=== PATIENT | male | born 1940 | race Caucasian/White ===

== ENCOUNTER 2020-04-24 08:35 | Outpatient (REF) | payer MEDICARE, SELFPAY ==
[2020-04-24 09:06] LABS: Hemoglobin 13.2 g/dl (14.0-18.0); Mean Corpuscular HGB Conc 31.4 g/dl (31.0-36.0); Mean Corpuscular Hemoglobin 26.6 pg (27.0-33.0); Mean Corpuscular Volume 84.5 fL (80-98); Platelet Count 233 X10*3/uL (160-400); Red Blood Count 4.97 X10*6/uL (4.60-5.80); Red Cell Distribution Width 14.2 % (11.0-16.0); White Blood Count 8.6 X10*3/uL (4.8-10.8)
[2020-04-24 09:34] LABS: Alanine Aminotransferase 31 U/L (0-40); Albumin Level 4.5 g/dL (3.5-5.0); Alkaline Phosphatase 111 U/L (39-117); Anion Gap 13 (12-20); Aspartate Amino Transferase 21 U/L (5-37); Bilirubin Direct 0.2 mg/dL (0.0-0.5); Bilirubin Total 0.4 mg/dL (0.0-1.0); Blood Urea Nitrogen 13 mg/dL (9-16); Calcium 9.2 mg/dL (8.4-10.2); Carbon Dioxide 28 mmol/L (22-29); Chloride 106 mmol/L (96-108); Cholesterol 153 mg/dL; Estimated Glomerular Filt Rate > 60; Glucose Random 150 mg/dL (60-115); HDL Cholesterol 35 mg/dL; LDL Cholesterol Calculated 77 mg/dl; Potassium 3.9 mmol/l (3.3-5.1); Sodium 143 mmol/L (135-145); Total Protein 7.3 g/dL (6.5-8.0); Triglycerides 208 mg/dL
[2020-04-24 09:41] LABS: Estimated Average Glucose 154 mg/dL
[2020-04-24 09:55] LABS: Thyroid Stimulating Hormone 4.72 uIU/mL (0.32-4.0)
== END 2020-04-24 08:36 | disposition home or self-care (01) ==
LOC: HO.LAB 08:35
PROVIDERS: Visit Provider Internal Medicine
DX: E11.9 Type 2 diabetes mellitus without complications (principal)
CPT/HCPCS: 36415; 80048; 80061; 80076; 83036; 84443; 85027

== ENCOUNTER 2020-05-07 15:11 | Emergency (ER) | payer MEDICARE, SELFPAY ==
[2020-05-07 15:18] VITALS: BP 126/70; PULSE 61; RESP 18; TEMP 36.6; O2SAT 95; BMI 24.2
--- NOTE | 2020-05-07 15:36 | XR_ITS ---
EXAMINATION: XR KNEE, LEFT CLINICAL INFORMATION: Left knee, left hand and wrist COMPARISON: Left knee and hand pain after fall TECHNIQUE: Four views of the left knee, 4 views left hand. FINDINGS: Knee: Normal no significant bone joint or soft tissue abnormality is seen. No effusion is present. No fracture is seen. Left hand and wrist: There is a spiral fracture the base of the fourth metacarpal which most likely involves the PENITENTIARY joint. No other fractures are seen. XR/XR knee LT 4V IMPRESSION: Spiral fracture base of the fourth metacarpal carpal.
--- NOTE | 2020-05-07 15:36 | CT_ITS ---
EXAMINATION: NONCONTRAST HEAD CT NONCONTRAST CERVICAL SPINE CT INDICATION INFORMATION: Fall COMPARISON: 09/20/2018 TECHNIQUE: Separate noncontrast CT examinations of the head and cervical spine were performed. Coronal and sagittal images were created for each examination at the technologist workstation. DLP: 1247 mGy-cm FINDINGS: Head: There is no evidence of acute intracranial hemorrhage or territorial infarction. No abnormal mass effect or midline shift is seen. Gomez to white matter differentiation is well preserved. No extra-axial fluid collections are identified. No hydrocephalus. Proportional prominence of the ventricles and sulcal spaces is consistent with moderate volume loss. Patchy periventricular and deep white matter hypoattenuation is consistent with moderate small vessel ischemic changes. Bilateral chronic frontal lobe infarcts. Ex vacuo dilatation of the frontal horns of the lateral ventricles. Chronic lacunar infarct of the left caudate head. No acute osseous or soft tissue abnormality. The mastoid air cells and visualized portions of the paranasal sinuses are well aerated. Cervical spine: There is anatomic alignment of the vertebral bodies and posterior elements. The atlantoaxial and atlantooccipital articulations are intact. Vertebral body heights are maintained. There is multilevel intervertebral disc space narrowing with endplate osteophyte formation and facet arthropathy. No evidence of acute fracture. No prevertebral soft tissue swelling. Visualized portions of the lung apices are unremarkable. The thyroid gland is unremarkable. CT/CT cervical spine wo con IMPRESSION: 1. No acute intracranial findings. Multiple chronic changes. 2. No fracture or malalignment of the cervical spine. Moderate degenerative changes.
--- NOTE | 2020-05-07 15:36 | ECG_ITS ---
Test Reason : FALL Blood Pressure : / mmHG Vent. Rate : 057 BPM Atrial Rate : 057 BPM P-R Int : 206 ms QRS Dur : 084 ms QT Int : 444 ms P-R-T Axes : 061 037 060 degrees QTc Int : 432 ms Sinus bradycardia Otherwise normal ECG No previous ECGs available Referred By: Kenneth Jensen Electronically Signed By:JEREMY REYES MD
[2020-05-07 16:23] LABS: MANUAL DIFF FLAG NO
[2020-05-07 16:25] LABS: Basophils Percent Auto 0.3 % (0-2); Eosinophils Absolute Auto 0.2 X10*3/uL (0.0-0.4); Eosinophils Percent Auto 1.9 % (0-4); Hemoglobin 11.9 g/dl (14.0-18.0); Imm Gran Abs Auto 0.02 X10*3/uL (0.00-0.03); Imm Gran Pct Auto 0.3 % (0.0-0.4); Lymphocytes Percent Auto 25.6 % (20-40); Mean Corpuscular HGB Conc 31.3 g/dl (31.0-36.0); Mean Corpuscular Hemoglobin 26.7 pg (27.0-33.0); Mean Corpuscular Volume 85.2 fL (80-98); Mean Platelet Volume 11.3 fL (9.4-12.4); Monocytes Absolute Auto 0.4 X10*3/uL (0.1-1.2); Monocytes Percent Auto 5.6 % (2-11); Neutrophils Absolute Auto 5.1 X10*3/uL (2.0-8.3); Neutrophils Percent Auto 66.3 % (45-73); Platelet Count 198 X10*3/uL (160-400); Red Blood Count 4.46 X10*6/uL (4.60-5.80); White Blood Count 7.7 X10*3/uL (4.8-10.8)
--- NOTE | 2020-05-07 16:28 | XR_ITS ---
EXAMINATION: XR KNEE, LEFT CLINICAL INFORMATION: Left knee, left hand and wrist COMPARISON: Left knee and hand pain after fall TECHNIQUE: Four views of the left knee, 4 views left hand. FINDINGS: Knee: Normal no significant bone joint or soft tissue abnormality is seen. No effusion is present. No fracture is seen. Left hand and wrist: There is a spiral fracture the base of the fourth metacarpal which most likely involves the SKILLED NURSING joint. No other fractures are seen. XR/XR hand wrist LT IMPRESSION: Spiral fracture base of the fourth metacarpal carpal.
--- NOTE | 2020-05-07 16:28 | ED_ITS ---
HPI - Fall General Chief Complaint: Fall Stated Complaint: fall Time Seen by Provider: 05/07/20 19:38 Source: patient Mode of arrival: EMS Limitations: no limitations History of Present Illness HPI Narrative: Patient presents to ED for fall. Patient states since having a stroke 6 years ago in [place] history and Parkinson's he has frequent falls. Patient states today while walking in the street he lost his footing and became off balance which caused him start walking faster than usual and then he fell. Patient states this usually happens every time he is about to fall. Patient denied having any headache, chest pain, shortness of breath, weakness or abdominal pain before falling. Patient main complaint is left knee and left hand pain. Patient denies hitting head or loss of consciousness. Patient states he does not use a walker or cane. Patient states at baseline he usually ambulates by putting his hand on the wall to better his balance. Patient states he refrequently falls. Patient denies any rectal bleeding, or vomiting blood. Related Data Previous Rx's Medication Instructions Recorded memantine 10 mg tablet 10 mg PO BID #180 tab 04/16/20 memantine 10 mg tablet 10 mg PO BID #180 tab 04/17/20 pioglitazone 15 mg tablet 15 mg PO DAILY #90 tab 04/17/20 donepezil 10 mg tablet 10 mg PO DAILY #90 tab 04/19/20 paroxetine HCl 20 mg tablet 20 mg PO DAILY #90 tab 04/29/20 ibuprofen 400 mg PO Q6H PRN #28 tab 05/07/20 Allergies Allergy/AdvReac Type Severity Reaction Status Date / Time No Known Allergies Allergy Verified 05/05/20 11:05 Review of Systems Review of Systems: Yes all other systems are reviewed and are negative Constitutional: Constitutional: Reports as per HPI, Reports no additional constitutional complaints, Denies frequent falls and Denies headache(s) Eyes: Eyes: Reports as per HPI and Reports no additional eye complaints ENT: Reports system reviewed and no additional complaints, except as documented, Reports as per HPI, Denies vertigo, Denies dizziness and Denies headache(s) Cardiovascular: Cardiovascular: Reports as per HPI, Reports no additional cardiovascular complaints and Denies syncope Respiratory: Respiratory: Reports as per HPI and Reports no additional respiratory complaints Gastrointestinal: Gastrointestinal: Reports as per HPI and Reports no additional gastrointestinal complaints Genitourinary: Genitourinary: Reports no additional male genitourinary complaints and Reports as per HPI Musculoskeletal: Musculoskeletal: Reports no additional musculoskeletal complaints and Reports arthralgias ( left knee and left hand pain) Neurologic: Reports system reviewed and no additional complaints, except as documented, Reports as per HPI, Denies Abnormal speech present, Denies burning sensations, Denies confusion, Denies vertigo, Denies dizziness, Denies syncope, Denies frequent falls and Denies headache(s) Psychiatric: Psychiatric: Reports no additional psychiatric complaints, Reports as per HPI and Denies confusion [facility] Past Medical History Medical History Diabetes Parkinsons Stroke Surgical History (Updated 05/05/20 @ 11:05 by JAMIE Crabtree) No pertinent past surgical history Family History Family History (Updated 05/05/20 @ 11:06 by JAMIE Crabtree) Father No problems noted. Mother No problems noted. Family/Other Diabetes Social History Social History Alcohol intake: never Smoked in Last 30 Days: No Use of substances other than those prescribed or required for medical reasons: No Advance Directives: No Advance Directives Information Provided: No Physical Exam Vital Signs: Vital Signs: Last Vital Signs Temp 97.8 F 05/07/20 18:39 Pulse 62 05/07/20 18:39 Resp 16 05/07/20 18:39 BP 135/60 05/07/20 18:39 Pulse Ox 98 05/07/20 18:39 Body Mass Index 24.2 Const: General: cooperative, healthy appearing, comfortable, no acute distress, well developed and alert; No confusion Orientation/consciousness: oriented to person, patient oriented x3 and No confusion HENMT: Head: Yes normal to inspection, Yes No palpable skull fracture present, No atraumatic, No abrasion, No Acrocyanosis present, No Franz's sign, No contusion, No cranial bruits, No hematoma, No laceration, No occipital foramen tenderness, No palpable skull fracture, No raccoon eyes, No scalp tenderness, No Temporal artery tenderness present and No periorbital ecchymosis Eyes: General: appearance normal, both eyes and all related structures Neck: Neck: Yes normal visual inspection, Yes full ROM, Yes no lymphadenopathy, Yes no meningeal signs, Yes trachea midline, Yes supple and No tender Chest: Chest palpation & inspection: normal inspection of the chest, normal palpation of entire chest wall and no localized rib tenderness Resp: Effort & Inspection: normal respiratory effort and able to speak in complete sentences Auscultation: clear to auscultation bilaterally Cardio: Jugular venous distension: no JVD Heart sounds: S1 normal heart sound present and S2 normal heart sound present GI: Inspection: Yes normal to inspection and No abdominal wall ecchymosis Palpation (GI): Soft to palpation, not firm, nontender, no guarding and not rigid : General: No CVA tenderness and Yes no CVA tenderness Back/Spine/Pelvis: Back: no CVA tenderness, No CVA tenderness and No back tenderness Skin: Other: patient of left General skin exam: no rashes or lesions noted Neuro: Other: negative pronator drift. squaxin facial droop. Motor/neuro / vascular exam of all extremities are intact. All extremities have equal strength. Speech is normal General: oriented to person, patient oriented x3, gait normal, tone normal, no meningeal signs, CN's II-XI intact bilaterally and No confusion Cranial nerves: Yes CN's II-XII intact bilaterally Speech: No Abnormal speech present Extrem: Other: positive for left hand tenderness and left knee tenderness. Course Course Course Narrative: history and physical exam indicate more mechanical fall, but due to patient's age will do medical evaluation. Reevaluation(s) Reevaluation #1: patient's EKG was normal. Patient's troponin negative. Press the patient labs are normal. Patient head CT, C-spine, and left knee x-ray were all negative for brain bleed, skull fracture, neck fracture, or knee fracture. Left hand x-ray came back positive for 4th metacarpal fracture. Patient placed in ulnar gutter splint by tech. Time: 18:50 Reevaluation #2: patient able to walk on his own without any help from staff. Patient presently is asymptomatic. History and physical exam indicate mechanical fall.. Patient has small drop in hematocrit. Patient vital signs are stable. Occult guaiac stool negative. Patient is hemodynamically stable. Time: 19:04 MDM - Fall MDM Narrative Medical decision making narrative: Mechanical fal. hand fracture Lab Data Result diagrams: 05/07/20 16:16 05/07/20 16:16 Labs: Lab Results 05/07/20 05/07/20 05/07/20 Range/Units 16:16 16:16 16:16 WBC 7.7 (4.8-10.8) X10*3/uL RBC 4.46 L (4.60-5.80) X10*6/uL Hgb 11.9 L (14.0-18.0) g/dl Hct 38.0 L (42-52) % MCV 85.2 (80-98) fL MCH 26.7 L (27.0-33.0) pg MCHC 31.3 (31.0-36.0) g/dl RDW 14.0 (11.0-16.0) % Plt Count 198 (160-400) X10*3/uL MPV 11.3 (9.4-12.4) fL Immature Gran % (Auto) 0.3 (0.0-0.4) % Neut % (Auto) 66.3 (45-73) % Lymph % (Auto) 25.6 (20-40) % [place] % (Auto) 5.6 (2-11) % Eos % (Auto) 1.9 (0-4) % Baso % (Auto) 0.3 (0-2) % Lymph # (Auto) 2.0 (1.2-4.9) X10*3/uL [place] # (Auto) 0.4 (0.1-1.2) X10*3/uL Eos # (Auto) 0.2 (0.0-0.4) X10*3/uL Baso # (Auto) 0.0 (0.0-0.2) X10*3/uL Abs Immat Gran (auto) 0.02 (0.00-0.03) X10*3/uL Absolute Neuts (auto) 5.1 (2.0-8.3) X10*3/uL Absolute Nucleated RBC 0.000 (0.0-0.012) X10*3/uL Nucleated RBC % (auto) 0.0 (0.0-0.2) /100WBC PT 11.7 (10.8-13.0) SEC INR 1.0 (0.9-1.1) APTT 32.5 (24.1-38.0) SEC Sodium 140 (135-145) mmol/L Potassium 4.3 (3.3-5.1) mmol/l Chloride 104 (96-108) mmol/L Carbon Dioxide 28 (22-29) mmol/L Anion Gap 12 (12-20) BUN 13 (9-16) mg/dL Creatinine 1.01 (0.5-1.4) mg/dL Estim Creat Clear Calc 53.5 Estimated GFR > 60 Random Glucose 116 H (60-115) mg/dL Calcium 9.0 (8.4-10.2) mg/dL Total Bilirubin 0.5 (0.0-1.0) mg/dL AST 17 (5-37) U/L ALT 23 (0-40) U/L Alkaline Phosphatase 102 (39-117) U/L Troponin I High Sens (<3.5-35.0) ng/L Total Protein 6.6 (6.5-8.0) g/dL Albumin 4.2 (3.5-5.0) g/dL 05/07/20 Range/Units 16:16 WBC (4.8-10.8) X10*3/uL RBC (4.60-5.80) X10*6/uL Hgb (14.0-18.0) g/dl Hct (42-52) % MCV (80-98) fL MCH (27.0-33.0) pg MCHC (31.0-36.0) g/dl RDW (11.0-16.0) % Plt Count (160-400) X10*3/uL MPV (9.4-12.4) fL Immature Gran % (Auto) (0.0-0.4) % Neut % (Auto) (45-73) % Lymph % (Auto) (20-40) % [place] % (Auto) (2-11) % Eos % (Auto) (0-4) % Baso % (Auto) (0-2) % Lymph # (Auto) (1.2-4.9) X10*3/uL [place] # (Auto) (0.1-1.2) X10*3/uL Eos # (Auto) (0.0-0.4) X10*3/uL Baso # (Auto) (0.0-0.2) X10*3/uL Abs Immat Gran (auto) (0.00-0.03) X10*3/uL Absolute Neuts (auto) (2.0-8.3) X10*3/uL Absolute Nucleated RBC (0.0-0.012) X10*3/uL Nucleated RBC % (auto) (0.0-0.2) /100WBC PT (10.8-13.0) SEC INR (0.9-1.1) APTT (24.1-38.0) SEC Sodium (135-145) mmol/L Potassium (3.3-5.1) mmol/l Chloride (96-108) mmol/L Carbon Dioxide (22-29) mmol/L Anion Gap (12-20) BUN (9-16) mg/dL Creatinine (0.5-1.4) mg/dL Estim Creat Clear Calc Estimated GFR Random Glucose (60-115) mg/dL Calcium (8.4-10.2) mg/dL Total Bilirubin (0.0-1.0) mg/dL AST (5-37) U/L ALT (0-40) U/L Alkaline Phosphatase (39-117) U/L Troponin I High Sens < 3.5 (<3.5-35.0) ng/L Total Protein (6.5-8.0) g/dL Albumin (3.5-5.0) g/dL ECG Data Interpretation: sinus bradycardia. Ventricular rate 57. ID interval tools 6. QRS as 84. QTC 432. Negative STEMI Discharge Plan Discharge Clinical Impression: Fracture of hand Patient Disposition: Home, Self-Care Instructions: Hand Fracture (ED) Prescriptions: New ibuprofen 400 mg tablet 400 mg PO Q6H PRN (Reason: pain) Qty: 28 RF: 0 No Action memantine 10 mg tablet 10 mg PO BID Qty: 180 RF: 0 pioglitazone 15 mg tablet 15 mg PO DAILY Qty: 90 RF: 0 memantine 10 mg tablet 10 mg PO BID Qty: 180 RF: 0 donepezil 10 mg tablet 10 mg PO DAILY Qty: 90 RF: 2 paroxetine HCl 20 mg tablet 20 mg PO DAILY Qty: 90 RF: 1 Referrals: Navid Allen MD [Physician] - 2 days (Left hand 4th metacarpal fracture) Print Language: Lithuanian
[2020-05-07 16:30] LABS: Prothrombin Time 11.7 SEC (10.8-13.0)
[2020-05-07 16:33] LABS: Partial Thromboplastin Time 32.5 SEC (24.1-38.0)
[2020-05-07] MEDS: Acetaminophen 325 MG TABLET 650 MG PO (16:50)
[2020-05-07 16:51] LABS: Alanine Aminotransferase 23 U/L (0-40); Albumin Level 4.2 g/dL (3.5-5.0); Alkaline Phosphatase 102 U/L (39-117); Anion Gap 12 (12-20); Aspartate Amino Transferase 17 U/L (5-37); Bilirubin Total 0.5 mg/dL (0.0-1.0); Blood Urea Nitrogen 13 mg/dL (9-16); Carbon Dioxide 28 mmol/L (22-29); Chloride 104 mmol/L (96-108); Creatinine Clr Calc Pharmacy 53.5; Estimated Glomerular Filt Rate > 60; Glucose Random 116 mg/dL (60-115); Potassium 4.3 mmol/l (3.3-5.1); Sodium 140 mmol/L (135-145); Total Protein 6.6 g/dL (6.5-8.0)
[2020-05-07 16:56] LABS: Troponin-I High Sensitivity < 3.5 ng/L (<3.5-35.0)
[2020-05-07 18:39] VITALS: BP 135/60; PULSE 62; RESP 16; TEMP 36.6; O2SAT 98
[2020-05-07 19:58] LABS: OBS Int Ctl Valid YES; OBS1 NEG (NEG)
--- NOTE | 2020-05-07 20:13 | PC.NURSE ---
pt ambulates well, no apparent distress noted, +cms in r hand s/p cast application
== END 2020-05-07 20:14 | disposition home or self-care (01) ==
PROVIDERS: Physician Assistant; Emergency Provider Internal Medicine
DX: S62.345A Nondisplaced fracture of base of fourth metacarpal bone, left hand, initial encounter for closed fracture (principal); M25.562 Pain in left knee; W01.0XXA Fall on same level from slipping, tripping and stumbling without subsequent striking against object, initial encounter; Z91.81 History of falling; E11.9 Type 2 diabetes mellitus without complications; G20 Parkinson's disease; F02.80 Dementia in other diseases classified elsewhere, unspecified severity, without behavioral disturbance, psychotic disturbance, mood disturbance, and anxiety; Y93.01 Activity, walking, marching and hiking; Y92.480 Sidewalk as the place of occurrence of the external cause; Y99.9 Unspecified external cause status
CPT/HCPCS: 29125; 36415; 70450; 72125; 73110; 73130; 73564; 80053; 82272; 84484; 85025; 85610; 85730; 93005; 99284

== ENCOUNTER 2020-05-14 12:22 | Outpatient (REF) | payer MEDICARE, SELFPAY ==
--- NOTE | 2020-05-14 13:36 | XR_ITS ---
EXAMINATION: XR HAND, LEFT CLINICAL INFORMATION: Fracture follow-up COMPARISON: 05/07/2020 TECHNIQUE: PA, lateral, and oblique views of the left hand. FINDINGS: The distal radius, ulna and radioulnar joint are normal. The carpal bones are normal. No carpal fracture or subluxation. Again noted is an oblique fracture of the proximal fourth metacarpal metadiaphysis with approximately 0.3 cm ulnar displacement of the distal fragment. Currently, no callus formation. Otherwise, metacarpals and carpometacarpal joints are unremarkable. The phalanges are intact. XR/XR hand LT min 3V IMPRESSION: Mildly displaced fracture of the proximal fourth metacarpal. The fragments are unchanged in position compared to 05/07/2020.
== END 2020-05-14 12:23 | disposition home or self-care (01) ==
LOC: HO.HOSX 12:22
PROVIDERS: Visit Provider Physician Assistant
DX: S62.305A Unspecified fracture of fourth metacarpal bone, left hand, initial encounter for closed fracture (principal)
CPT/HCPCS: 26600; 29085; 73130; 99202

== ENCOUNTER 2020-07-01 09:51 | Outpatient (REF) | payer MEDICARE, SELFPAY ==
--- NOTE | 2020-07-01 10:39 | XR_ITS ---
EXAMINATION: XR HAND, LEFT CLINICAL INFORMATION: Follow-up fracture COMPARISON: 05/14/2020 TECHNIQUE: PA, lateral, and oblique views of the left hand. FINDINGS: Bones are diffusely osteopenic. Carpal bones are intact. Joint spaces are well-preserved in the hand and wrist. Oblique fracture of the proximal metadiaphysis of the fourth metacarpal with 2-3 mm of ulnar displacement and mild proximal migration of the distal fragment. The position of the distal fragment is unchanged compared to 05/14/2020. There is early callus formation at fracture margins. XR/XR hand LT min 3V IMPRESSION: There is an early healing response at the periphery of the oblique fourth metacarpal fracture.
== END 2020-07-01 09:52 | disposition home or self-care (01) ==
LOC: HO.HOSX 09:51
PROVIDERS: Visit Provider Physician Assistant
DX: S62.92XA Unspecified fracture of left hand, initial encounter for closed fracture (principal); X58.XXXA Exposure to other specified factors, initial encounter; Y93.9 Activity, unspecified; Y92.9 Unspecified place or not applicable; Y99.9 Unspecified external cause status
CPT/HCPCS: 73130

== ENCOUNTER 2021-01-13 08:59 | Outpatient (REF) | payer MEDICARE, SELFPAY ==
[2021-01-13 09:55] LABS: Hematocrit 40.1 % (42-52); Hemoglobin 12.4 g/dl (14.0-18.0); Mean Corpuscular HGB Conc 30.9 g/dl (31.0-36.0); Mean Corpuscular Hemoglobin 26.5 pg (27.0-33.0); Mean Corpuscular Volume 85.7 fL (80-98); Mean Platelet Volume 11.3 fL (9.4-12.4); Platelet Count 241 X10*3/uL (160-400); Red Blood Count 4.68 X10*6/uL (4.60-5.80); Red Cell Distribution Width 14.1 % (11.0-16.0); White Blood Count 7.2 X10*3/uL (4.8-10.8)
[2021-01-13 10:11] LABS: Alanine Aminotransferase 24 U/L (0-40); Albumin Level 4.5 g/dL (3.5-5.0); Alkaline Phosphatase 114 U/L (39-117); Anion Gap 11 (12-20); Aspartate Amino Transferase 18 U/L (5-37); Bilirubin Direct 0.2 mg/dL (0.0-0.5); Bilirubin Total 0.4 mg/dL (0.0-1.0); Blood Urea Nitrogen 10 mg/dL (9-16); Calcium 9.7 mg/dL (8.4-10.2); Carbon Dioxide 30 mmol/L (22-29); Chloride 105 mmol/L (96-108); Cholesterol 138 mg/dL; Estimated Glomerular Filt Rate > 60; Glucose Random 124 mg/dL (60-115); HDL Cholesterol 37 mg/dL; LDL Cholesterol Calculated 73 mg/dl; Potassium 4.3 mmol/L (3.3-5.1); Sodium 142 mmol/L (135-145); Total Protein 7.1 g/dL (6.5-8.0); Triglycerides 142 mg/dL
[2021-01-13 10:16] LABS: Estimated Average Glucose 146 mg/dL; Hemoglobin A1c % 6.7 %
[2021-01-13 11:11] LABS: Thyroid Stimulating Hormone 5.02 uIU/mL (0.32-4.0)
[2021-01-23 13:32] LABS: Vitamin D 25-OH, D2 <4 ng/mL; Vitamin D 25-OH, D3 27 ng/mL; Vitamin D 25-OH, Total 27 ng/mL (30-100)
== END 2021-01-13 09:00 | disposition home or self-care (01) ==
LOC: HO.LAB 08:59
PROVIDERS: PCP Internal Medicine; Visit Provider Internal Medicine
DX: E11.9 Type 2 diabetes mellitus without complications (principal); I63.9 Cerebral infarction, unspecified
CPT/HCPCS: 36415; 80048; 80061; 80076; 82306; 83036; 84443; 85027

== ENCOUNTER 2021-06-07 07:47 | Emergency (ER) | payer MEDICARE, SELFPAY ==
--- NOTE | ~2021-06-07 | CT_ITS ---
EXAMINATION: CT BRAIN AND CT CERVICAL SPINE WITHOUT CONTRAST. CLINICAL INFORMATION: Fall, trauma. COMPARISON: None. TECHNIQUE: 5 mm thin axial and reformatted 2 mm thin sagittal and coronal images of the brain were obtained without contrast. Subsequently, axial 3 mm thin and reformatted 2 mm thin sagittal and coronal images of the cervical spine were obtained. DLP: 1299 mGy-cm. FINDINGS: Brain: There is no acute intra-axial or extra-axial bleed, masses or midline shift. There is no acute infarction evolution. There is lacunar infarction bilateral external capsules, right greater than left and left basal ganglia. Moderate symmetrical but enlarged lateral ventricles are noted. There is prominent bilateral cortical sulci. There is diffuse hypodensity in bilateral periventricular white matter, especially in the frontal lobes. Bone windows reveal no calvarial abnormality. Bilateral paranasal sinuses and mastoid air cells are well aerated. Cervical spine: On sagittal reconstructed images, there is mild straightening of the cervical lordosis. The vertebral heights and alignment are normal. There is loss of C3-C4, C5-C6 and C6-C7 disc heights with moderate ventral and mild posterior spondylosis. The craniovertebral junction and the C1-C2 alignment is normal. There is no visible acute fracture, dislocation or subluxation seen. The prevertebral and paravertebral soft tissues are normal. CT/CT cervical spine wo con IMPRESSION: No acute intracranial process seen. Bilateral lacunar infarcts in the external capsule and left basal ganglia. Chronic small vessel ischemic changes in periventricular white matter of both cerebral hemispheres especially in frontal lobes. No mass effect. Moderate cerebral volume loss. No acute fracture, dislocation or subluxation.
--- NOTE | ~2021-06-07 | XR_ITS ---
EXAMINATION: XR CHEST CLINICAL INFORMATION: Chest pain COMPARISON: None TECHNIQUE: Frontal view of the chest was obtained. FINDINGS: No significant abnormality is noted involving the heart, lungs, mediastinum, bony thorax or soft tissues. XR/XR chest 1V IMPRESSION: Unremarkable chest examination.
--- NOTE | ~2021-06-07 | CT_ITS ---
EXAMINATION: CT BRAIN AND CT CERVICAL SPINE WITHOUT CONTRAST. CLINICAL INFORMATION: Fall, trauma. COMPARISON: None. TECHNIQUE: 5 mm thin axial and reformatted 2 mm thin sagittal and coronal images of the brain were obtained without contrast. Subsequently, axial 3 mm thin and reformatted 2 mm thin sagittal and coronal images of the cervical spine were obtained. DLP: 1299 mGy-cm. FINDINGS: Brain: There is no acute intra-axial or extra-axial bleed, masses or midline shift. There is no acute infarction evolution. There is lacunar infarction bilateral external capsules, right greater than left and left basal ganglia. Moderate symmetrical but enlarged lateral ventricles are noted. There is prominent bilateral cortical sulci. There is diffuse hypodensity in bilateral periventricular white matter, especially in the frontal lobes. Bone windows reveal no calvarial abnormality. Bilateral paranasal sinuses and mastoid air cells are well aerated. Cervical spine: On sagittal reconstructed images, there is mild straightening of the cervical lordosis. The vertebral heights and alignment are normal. There is loss of C3-C4, C5-C6 and C6-C7 disc heights with moderate ventral and mild posterior spondylosis. The craniovertebral junction and the C1-C2 alignment is normal. There is no visible acute fracture, dislocation or subluxation seen. The prevertebral and paravertebral soft tissues are normal. CT/CT head/brain wo con IMPRESSION: No acute intracranial process seen. Bilateral lacunar infarcts in the external capsule and left basal ganglia. Chronic small vessel ischemic changes in periventricular white matter of both cerebral hemispheres especially in frontal lobes. No mass effect. Moderate cerebral volume loss. No acute fracture, dislocation or subluxation.
[2021-06-07 07:54] VITALS: BP 131/72; PULSE 104; RESP 18; TEMP 37; O2SAT 96; BMI 25.1
--- NOTE | 2021-06-07 08:47 | ECG_ITS ---
Test Reason : FALL Blood Pressure : / mmHG Vent. Rate : 088 BPM Atrial Rate : 088 BPM P-R Int : 198 ms QRS Dur : 082 ms QT Int : 362 ms P-R-T Axes : 070 047 063 degrees QTc Int : 438 ms Normal sinus rhythm ST elevation consider inferior injury or acute infarct Abnormal ECG When compared with ECG of 07-MAY-2020 16:02, Vent. rate has increased BY [address] elevation now present in Inferior leads Referred By: Gonzales Clayton Electronically Signed By:JEREMY REYES MD
--- NOTE | 2021-06-07 09:00 | ED_ITS ---
HPI - Fall General Chief Complaint: Fall Stated Complaint: FALL,CP,CONGESTION,+CCOLLAR Time Seen by Provider: 06/07/21 08:46 Source: patient Mode of arrival: EMS History of Present Illness HPI Narrative: Mr. Dhaliwal is a 80 years old patient brought in by ambulance after a fall at home, he denies any syncopal symptoms he denies any dizziness.I spoke with his by phone [phone] she states that he was suposed to use the walker and he fell in the bathroom because did not use walker,he has trouble with balance at baseline complaint: fall Onset (ago): hour(s) (1) Fall from: standing Fall witnessed: yes, by family Place fall occurred: home Loss of consciousness: none Prolonged down time: no Symptoms prior to fall: none Context: tripped/slipped Related Data Home Medications Medication Instructions Recorded Confirmed aspirin 81 mg tablet,delayed 81 mg PO DAILY 05/12/20 12/14/20 release Previous Rx's Medication Instructions Recorded ibuprofen 400 mg tablet 400 mg PO Q6H PRN #28 tab 05/07/20 Wheel chair #1 ea 12/14/20 paroxetine HCl 20 mg tablet 20 mg PO DAILY #90 tab 02/05/21 pioglitazone 15 mg tablet 15 mg PO DAILY #90 tab 02/05/21 memantine 10 mg tablet 10 mg PO BID #180 tab 02/26/21 atorvastatin 40 mg tablet 40 mg PO DAILY #90 tab 04/14/21 donepezil 10 mg tablet 10 mg PO DAILY #90 tab 04/14/21 levothyroxine 25 mcg tablet 25 mcg PO DAILY #90 tab 04/14/21 (Synthroid) metformin 500 mg tablet 500 mg PO BID #180 tab 04/14/21 flash glucose sensor (FreeStyle #1 ea 06/03/21 Jennifer 14 Day Sensor) Allergies Allergy/AdvReac Type Severity Reaction Status Date / Time No Known Allergies Allergy Verified 06/03/21 14:48 [facility] Past Medical History Medical History Alzheimer disease Diabetes Parkinsons Stroke Surgical History No pertinent past surgical history Family History Family History Father No problems noted. Mother No problems noted. Family/Other Diabetes Son In good health Son In good health Son No problems noted. Daughter In good health Daughter In good health Social History Social History Housing: Assisted Living Facility Alcohol intake: unknown Patient Tobacco Use Status: Current everyday Tobacco user Tobacco use type: Cigarette Cigarette Packs Per Day: 0.5 e-Cigarette/Vaping Use: Never Used Use of substances other than those prescribed or required for medical reasons: Unknown Advance Directives: No Advance Directives Information Provided: No service: Yes Current occupational status: retired Current occupation: rt handed Physical Exam Vital Signs: Vital Signs: Last Vital Signs Temp 98.4 F 06/07/21 13:41 Pulse 90 06/07/21 13:41 Resp 16 06/07/21 13:41 BP 147/72 H 06/07/21 13:41 Pulse Ox 100 06/07/21 13:41 BMI result Body Mass Index 25.1 Const: General: cooperative, comfortable and no acute distress HENMT: Head: Yes normal to inspection and Yes normocephalic Face and sinus: Yes normal facial exam Mouth: Normal oral and palatal mucosa present Throat: Yes posterior oropharynx normal Neck: Neck: Yes normal visual inspection, Yes full ROM and Yes no lymphadenopathy Thyroid: Thyroid normal Lymphatic: no lymphadenopathy noted Chest: Chest palpation & inspection: normal inspection of the chest Resp: Effort & Inspection: normal respiratory effort and able to speak in complete sentences Auscultation: clear to auscultation bilaterally Cardio: Jugular venous distension: no JVD Rate: regular rate Rhythm: regular rhythm GI: Inspection: Yes normal to inspection Palpation (GI): Soft to palpation, not firm and nontender Auscultation: normal bowel sounds Skin: General skin exam: no rashes or lesions noted and elasticity normal Trauma: no lacerations or abrasions Wounds: no wounds Course Reevaluation(s) Reevaluation #1: Remains stable at this time we consulted patient case manager and physical therapy to evaluate for discharge. CT head read as No acute disease by radilogist Reevaluation #2: Patient was seen by Physical therapy he was able to ambulate well with a walker, he was okay for to be discharged per Physical therapy. Also patient case manager was consulted [facility] will be arranged. Daughter was called by [facility]DM - Fall Lab Data Attestation: I reviewed the patient's lab results. Result diagrams: 06/07/21 09:17 06/07/21 09:17 Labs: Lab Results 06/07/21 06/07/21 06/07/21 Range/Units 09:17 09:17 09:17 WBC 10.0 (4.8-10.8) X10*3/uL RBC 4.51 L (4.60-5.80) X10*6/uL Hgb 12.2 L (14.0-18.0) g/dl Hct 38.2 L (42.0-52.0) % MCV 84.7 (80.0-98.0) fL MCH 27.1 (27.0-33.0) pg MCHC 31.9 (31.0-36.0) g/dl RDW 14.0 (11.0-16.0) % Plt Count 207 (160-400) X10*3/uL MPV 10.8 (9.4-12.4) fL Immature Gran % (Auto) 0.4 (0.0-0.4) % Neut % (Auto) 66.2 (45-73) % Lymph % (Auto) 24.1 (20-40) % [place] % (Auto) 7.9 (2-11) % Eos % (Auto) 1.2 (0-4) % Baso % (Auto) 0.2 (0-2) % Lymph # (Auto) 2.4 (1.2-4.9) X10*3/uL [place] # (Auto) 0.8 (0.1-1.2) X10*3/uL Eos # (Auto) 0.1 (0.0-0.4) X10*3/uL Baso # (Auto) 0.0 (0.0-0.2) X10*3/uL Abs Immat Gran (auto) 0.04 H (0.00-0.03) X10*3/uL Absolute Neuts (auto) 6.6 (2.0-8.3) x10*3/uL Absolute Nucleated RBC 0.000 (0.0-0.012) X10*3/uL Nucleated RBC % (auto) 0.0 (0.0-0.2) /100WBC PT 11.6 (9.9-13.0) SEC INR 1.0 (0.9-1.1) Sodium 142 (135-145) mmol/L Potassium 5.1 (3.3-5.1) mmol/L Chloride 105 (96-108) mmol/L Carbon Dioxide 30 H (22-29) mmol/L Anion Gap 12 (12-20) BUN 10 (9-16) mg/dL Creatinine 1.10 (0.5-1.4) mg/dL Estim Creat Clear Calc 51.8 Estimated GFR > 60 Random Glucose 160 H (60-115) mg/dL Calcium 9.7 (8.4-10.2) mg/dL Total Bilirubin 0.6 (0.0-1.0) mg/dL AST 16 (5-37) U/L ALT 23 (0-40) U/L Alkaline Phosphatase 125 H (39-117) U/L Troponin I High Sens (<3.5-35.0) ng/L Total Protein 7.0 (6.5-8.0) g/dL Albumin 4.3 (3.5-5.0) g/dL Influenza Type A (PCR) (Negative) Influenza Type B (PCR) (Negative) RSV RNA Qual (PCR) (Negative) SARS-CoV-2 RNA (RT-PCR) (Negative) 06/07/21 06/07/21 Range/Units 09:17 11:34 WBC (4.8-10.8) X10*3/uL RBC (4.60-5.80) X10*6/uL Hgb (14.0-18.0) g/dl Hct (42.0-52.0) % MCV (80.0-98.0) fL MCH (27.0-33.0) pg MCHC (31.0-36.0) g/dl RDW (11.0-16.0) % Plt Count (160-400) X10*3/uL MPV (9.4-12.4) fL Immature Gran % (Auto) (0.0-0.4) % Neut % (Auto) (45-73) % Lymph % (Auto) (20-40) % [place] % (Auto) (2-11) % Eos % (Auto) (0-4) % Baso % (Auto) (0-2) % Lymph # (Auto) (1.2-4.9) X10*3/uL [place] # (Auto) (0.1-1.2) X10*3/uL Eos # (Auto) (0.0-0.4) X10*3/uL Baso # (Auto) (0.0-0.2) X10*3/uL Abs Immat Gran (auto) (0.00-0.03) X10*3/uL Absolute Neuts (auto) (2.0-8.3) x10*3/uL Absolute Nucleated RBC (0.0-0.012) X10*3/uL Nucleated RBC % (auto) (0.0-0.2) /100WBC PT (9.9-13.0) SEC INR (0.9-1.1) Sodium (135-145) mmol/L Potassium (3.3-5.1) mmol/L Chloride (96-108) mmol/L Carbon Dioxide (22-29) mmol/L Anion Gap (12-20) BUN (9-16) mg/dL Creatinine (0.5-1.4) mg/dL Estim Creat Clear Calc Estimated GFR Random Glucose (60-115) mg/dL Calcium (8.4-10.2) mg/dL Total Bilirubin (0.0-1.0) mg/dL AST (5-37) U/L ALT (0-40) U/L Alkaline Phosphatase (39-117) U/L Troponin I High Sens 3.9 (<3.5-35.0) ng/L Total Protein (6.5-8.0) g/dL Albumin (3.5-5.0) g/dL Influenza Type A (PCR) NEGATIVE (Negative) Influenza Type B (PCR) NEGATIVE (Negative) RSV RNA Qual (PCR) NEGATIVE (Negative) SARS-CoV-2 RNA (RT-PCR) NEGATIVE (Negative) Imaging Data CT scan - head: Radiologist's impression: Brain: There is no acute intra-axial or extra-axial bleed, masses or midline shift. There is no acute infarction evolution. There is lacunar infarction bilateral external capsules, right greater than left and left basal ganglia. Moderate symmetrical but enlarged lateral ventricles are noted. There is prominent bilateral cortical sulci. There is diffuse hypodensity in bilateral periventricular white matter, especially in the frontal lobes. Bone windows reveal no calvarial abnormality. Bilateral paranasal sinuses and mastoid air cells are well aerated. Cervical spine: On sagittal reconstructed images, there is mild straightening of the cervical lordosis. The vertebral heights and alignment are normal. There is loss of C3-C4, C5-C6 and C6-C7 disc heights with moderate ventral and mild posterior spondylosis. The craniovertebral junction and the C1-C2 alignment is normal. There is no visible acute fracture, dislocation or subluxation seen. The prevertebral and paravertebral soft tissues are normal.? CT/CT head/brain wo con IMPRESSION: No acute intracranial process seen. ? Bilateral lacunar infarcts in the external capsule and left basal ganglia. ? Chronic small vessel ischemic changes in periventricular white matter of both cerebral hemispheres especially in frontal lobes. No mass effect. ? Moderate cerebral volume loss. ? No acute fracture, dislocation or subluxat ECG Data Attestation: I personally reviewed and interpreted this ECG as follows: ECG interpretation date: 06/07/21 ECG interpretation time: 09:17 Pacemaker model: Normal sinus rhythm rate 80s [address] elevation 2 Discharge Plan Discharge Clinical Impression: Fall, Fall in elderly patient Patient Disposition: Home, Self-Care Instructions: Fall Prevention for Older Adults (ED), Fall Prevention (ED) Prescriptions: No Action pioglitazone 15 mg tablet 15 mg PO DAILY Qty: 90 RF: 1 paroxetine HCl 20 mg tablet 20 mg PO DAILY Qty: 90 RF: 1 memantine 10 mg tablet 10 mg PO BID Qty: 180 RF: 0 levothyroxine [Synthroid] 25 mcg tablet 25 mcg PO DAILY Qty: 90 RF: 1 atorvastatin 40 mg tablet 40 mg PO DAILY Qty: 90 RF: 0 metformin 500 mg tablet 500 mg PO BID Qty: 180 RF: 0 donepezil 10 mg tablet 10 mg PO DAILY Qty: 90 RF: 2 ibuprofen 400 mg tablet 400 mg PO Q6H PRN (Reason: pain) Qty: 28 RF: 0 aspirin 81 mg tablet,delayed release (DR/EC) 81 mg PO DAILY RF: 0 (DME) Wheel chair See Rx Instructions .Route .MEDSUPPLY Qty: 1 RF: 0 (DME) FreeStyle Jennifer 14 Day Sensor Kit See Rx Instructions .ROUTE .MEDSUPPLY Qty: 1 RF: 0 Referrals: [facility] [Outside] - 2 days Interventions: ED Discharge Assessment Last Done: 06/07/21 13:53 Discharge Date/Time: 06/07/21 13:55
[2021-06-07 09:22] LABS: MANUAL DIFF FLAG NO
[2021-06-07 09:23] LABS: Basophils Percent Auto 0.2 % (0-2); Eosinophils Absolute Auto 0.1 X10*3/uL (0.0-0.4); Eosinophils Percent Auto 1.2 % (0-4); Hematocrit 38.2 % (42.0-52.0); Hemoglobin 12.2 g/dl (14.0-18.0); Imm Gran Abs Auto 0.04 X10*3/uL (0.00-0.03); Imm Gran Pct Auto 0.4 % (0.0-0.4); Lymphocytes Absolute Auto 2.4 X10*3/uL (1.2-4.9); Lymphocytes Percent Auto 24.1 % (20-40); Mean Corpuscular HGB Conc 31.9 g/dl (31.0-36.0); Mean Corpuscular Hemoglobin 27.1 pg (27.0-33.0); Mean Corpuscular Volume 84.7 fL (80.0-98.0); Mean Platelet Volume 10.8 fL (9.4-12.4); Monocytes Absolute Auto 0.8 X10*3/uL (0.1-1.2); Monocytes Percent Auto 7.9 % (2-11); Neutrophils Absolute Auto 6.6 x10*3/uL (2.0-8.3); Neutrophils Percent Auto 66.2 % (45-73); Platelet Count 207 X10*3/uL (160-400); Red Blood Count 4.51 X10*6/uL (4.60-5.80)
[2021-06-07 09:29] LABS: Prothrombin Time 11.6 SEC (9.9-13.0)
[2021-06-07 09:38] LABS: Alanine Aminotransferase 23 U/L (0-40); Albumin Level 4.3 g/dL (3.5-5.0); Alkaline Phosphatase 125 U/L (39-117); Anion Gap 12 (12-20); Aspartate Amino Transferase 16 U/L (5-37); Bilirubin Total 0.6 mg/dL (0.0-1.0); Blood Urea Nitrogen 10 mg/dL (9-16); Calcium 9.7 mg/dL (8.4-10.2); Carbon Dioxide 30 mmol/L (22-29); Chloride 105 mmol/L (96-108); Creatinine Clr Calc Pharmacy 51.8; Estimated Glomerular Filt Rate > 60; Glucose Random 160 mg/dL (60-115); Potassium 5.1 mmol/L (3.3-5.1); Sodium 142 mmol/L (135-145)
[2021-06-07 09:43] LABS: Troponin-I High Sensitivity 3.9 ng/L (<3.5-35.0)
[2021-06-07 11:44] VITALS: BP 147/66; PULSE 81; RESP 20; O2SAT 96
[2021-06-07 12:20] VITALS: BP 137/70; PULSE 86; RESP 18; O2SAT 96
[2021-06-07 12:25] LABS: Influenza A PCR NEGATIVE (Negative); Influenza B PCR NEGATIVE (Negative); Resp Syncy Virus RNA Qual PCR NEGATIVE (Negative); SARS COV2 PCR INHOUSE NEGATIVE (Negative)
[2021-06-07 13:41] VITALS: BP 147/72; PULSE 90; RESP 16; TEMP 36.9; O2SAT 100
--- NOTE | 2021-06-07 13:43 | PC.NURSE ---
pt to dc home with daughter at 1400
--- NOTE | 2021-06-07 13:50 | MHC.CM.ED ---
Received case mangement consult from Dr Clayton. Patient came to the ER after a fall. Work up essentially negative. Physical therapy eval completed. Home therapy is recommended. Spoke with patient's daughter, Ute via telephone at [phone]. Patient lives with his and has [facility] services through [facility]. PCP verified. Ute believes she has a copy of patient's HCP and will attempt to obtain a copy. [facility] is closed today. Ute agreeable to referral to [facility] for physical therapy. 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 Patient, Iris BROCK and Dr Clayton aware. Continue to monitor for d/c needs.
== END 2021-06-07 13:55 | disposition home or self-care (01) ==
PROVIDERS: Emergency Provider Emergency Medicine; PCP Internal Medicine
DX: Z91.81 History of falling (principal); Z20.822 Contact with and (suspected) exposure to COVID-19; F17.200 Nicotine dependence, unspecified, uncomplicated; G20 Parkinson's disease; E11.9 Type 2 diabetes mellitus without complications; Z86.73 Personal history of transient ischemic attack (TIA), and cerebral infarction without residual deficits
CPT/HCPCS: 0241U; 36415; 70450; 71045; 72125; 80053; 84484; 85025; 85610; 93005; 97162; 99284; 99285

== ENCOUNTER 2023-04-06 13:23 | Outpatient (AMB) | payer MEDICARE, SELFPAY ==
--- NOTE | 2023-04-06 13:29 | A.OFFPC_ITS ---
Vital Signs 04/06/23 13:30 Height 5 ft 8 in Weight 156 lb BMI 23.7 BP 130/76 Blood Pressure Location Lt brachial Position Sitting Pulse 66 Pulse Source Pulse Oximeter Pulse Oximetry (%) 94 Oxygen Delivery Method Room Air Intake Visit Reasons: 6mth f/u Intake Note: Patient is here to follow up on DM, Parkinson, hypothyroid. 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: Present Accompanied by: Daughter Allergies No Known Allergies Allergy (Verified 04/07/23 06:09) Medication List - Last Reconciled 04/07/23 by Basilio Martin MD albuterol sulfate 90 mcg/actuation 1 inh inhalation QID PRN aspirin 81 mg PO DAILY atorvastatin 40 mg PO DAILY carbidopa-levodopa 25-100 mg 1 tab PO QID commode As directed donepezil 10 mg PO DAILY levothyroxine (Synthroid) 25 mcg PO DAILY memantine 10 mg PO BID metformin 500 mg PO BID paroxetine HCl 20 mg PO DAILY pioglitazone 15 mg PO DAILY timolol maleate 0.5% 1 drp ophthalmic (eye) QAM [URINAL As directed] [Wheel chair Wheel chair - As directed] Tobacco use date assessed: 04/06/23 Fall risk assessment: 2 + Falls in past year Last assessed Fall Risk: 04/06/23 Dental Screening Dental Screen Date: 04/06/23 Did you have a dental visit in the last 12 months?: No Did you have a dental problem in the last 6 months where you did not have access to dental care?: No Was dental information given to patient?: Patient has dentist HPI 6mth f/u HPI Details 82-year-old male presents to the office to discuss his chronic medical conditions. He comes for this visit along with his daughter. Patient is walking on his own without assistance. Patient is at baseline state of health. Daughter is reporting that she has heard him wheezing occasionally. Able to function and do activities of daily living. Continues to be incontinent to urine. He is alert, oriented. He eats on his own. Does not drive. He lives with his . The 2 daughters check on him every day. Compliant with all medications. Parkinson's symptoms controlled with current medications. [facility] Medical History Alzheimer disease Diabetes Stroke Parkinsons Surgical History No pertinent past surgical history Family History Father No problems noted. Mother No problems noted. Family/Other Diabetes Son In good health Son In good health Son No problems noted. Daughter In good health Daughter In good health Social History Housing: Assisted Living Facility Alcohol intake: never Patient Tobacco Use Status: Current everyday Tobacco user Tobacco use type: Cigarette Cigarette Packs Per Day: 0.5 Cigarettes Per Day: 10 e-Cigarette/Vaping Use: Never Used Second Hand Smoke Exposure: Yes service: Yes Current occupational status: retired Current occupation: rt handed Cognitive needs: Yes (wheelchair/walker) Hearing needs: No Vision needs: No Questionnaire PHQ-9 Over the last 2 weeks, how often have you been bothered by any of the following problems? Depression Screening Interpretation: Negative Depression Screening Done: Yes Source: Developed by Drs. Mohsen Waterman, Hema King and colleagues, with an educational sydney from [employer]. Thrive Questionnaire Date Thrive assessed: 06/22/22 EVERETTE-7 AMB Questionnaire EVERETTE-7 Date EVERETTE - 7 assessed: 06/22/22 Source: Developed by Drs. Mohsen Waterman, Hema King and colleagues, with an educational sydney from [employer]. Physical exam (Primary Care) Vital Signs: Last Vital Signs Pulse 66 04/06/23 13:30 BP 130/76 04/06/23 13:30 Pulse Ox 94 04/06/23 13:30 Oxygen Delivery Method Room Air 04/06/23 13:30 Care Plan Goal for BP management: Blood pressure is stable. Continue medications at same dosage. BMI result Body Mass Index 23.7 Tobacco/Smoking Status: Tobacco use Status Tobacco use date assessed 04/06/23 04/06/23 13:41 Patient Tobacco Use Status Current everyday Tobacco 04/06/23 13:41 Tobacco use type Cigarette 04/06/23 13:41 e-Cigarette/Vaping Use Never Used 04/06/23 13:41 Are you ready to quit: No Tobacco cessation counseling provided: No Depression Screening Interpretation: Negative Thrive Assessment: Date of Thrive Assessment Date Thrive assessed 06/22/22 04/06/23 13:41 Advance Care Planning discussion: Exists, not on file Date of discussion: 04/06/23 Who was present: Patient, daughter Forms completed: Health Care Proxy Time spent: 1-15 minutes, not on file Const General: cooperative and healthy appearing Nutritional Appearance: well nourished Orientation/consciousness: patient oriented x3 Limitations: no limitations HENMT Head: Yes normal to inspection Eyes General: appearance normal, both eyes and all related structures Neck Neck: Yes normal visual inspection Chest Chest palpation & inspection: normal palpation of entire chest wall Resp Effort & Inspection: normal respiratory effort Neuro General: patient oriented x3 Results AMB Hemoglobin A1c AMB Hemoglobin A1c 7.1 % Last Edit by JAMIE Rosario on 04/06/23 13:42 Results Reviewed Results Reviewed: Laboratory Last Values Hgb A1c (Clinic) 7.1 % (4.0-6.0) H 04/06/23 13:28 Assessment and Plan Assessment & Plan (1) Hypothyroid: Code(s): E03.9 - Hypothyroidism, unspecified Plan: Blood work has been ordered (2) Hyperlipidemia: Code(s): E78.5 - Hyperlipidemia, unspecified Plan: Condition is stable. (3) Parkinsons: Code(s): G20 - Parkinson's disease Plan: Condition is stable. Continue on current medications. (4) Stroke: Code(s): I63.9 - Cerebral infarction, unspecified Plan: Condition is stable. Continue current medications. Orders: Orders Lipid Panel 04/06/23 E03.9 - Hypothyroidism, unspecified, E78.5 - Hype rlipidemia, unspecified, G20 - Parkinson's disease Thyroid Stimulating Hormone 04/06/23 E03.9 - Hypothyroidism, unspecified, E78.5 - Hyperlipidemia, unspecified, G20 - Parkinson's disease AMB Hemoglobin A1c 04/06/23 E11.9 - Type 2 diabetes mellitus without complications Basic Metabolic Panel 04/06/23 E03.9 - Hypothyroidism, unspecified, E78.5 - Hyperlipidemia, unspecified, G20 - Parkinson's disease Complete Blood Count no Diff 04/06/23 E03.9 - Hypothyroidism, unspecified, E78.5 - Hyperlipidemia, unspecified, G20 - Parkinson's disease Liver Panel 04/06/23 E03.9 - Hypothyroidism, unspecified, E78.5 - Hyperlipidemia, unspecified, G20 - Parkinson's disease UA and rflx microscopic 04/06/23 E03.9 - Hypothyroidism, unspecified, E78.5 - Hyperlipidemia, unspecified, G20 - Parkinson's disease Medications: New albuterol sulfate 90 mcg/actuation 1 inh inhalation QID PRN 6.7 grams 1RF shortness of breath or wheezing Coding Level of Care Code Est Pt Level 4 (42793) Diagnoses Hypothyroid E03.9 Hyperlipidemia E78.5 Parkinsons G20 Stroke I63.9 Additional Codes Vital Signs *Quality* - Advance Care Planning discussion: Exists, not on file ([id number]) Vital Signs *Quality* - Time spent: 1-15 minutes, not on file ([id number])
[2023-04-06 13:30] VITALS: BP 130/76; PULSE 66; O2SAT 94; BMI 23.7
== END 2023-04-06 14:26 | disposition home or self-care (01) ==
PROVIDERS: PCP Internal Medicine; Visit Provider Internal Medicine
DX: E03.9 Hypothyroidism, unspecified (principal); E78.5 Hyperlipidemia, unspecified; I25.2 Old myocardial infarction; Z00.00 Encounter for general adult medical examination without abnormal findings
CPT/HCPCS: 1124F; 83036; 99214

== ENCOUNTER 2023-04-07 15:18 | Outpatient (REF) | payer MEDICARE, SELFPAY ==
[2023-04-07 16:20] LABS: Hematocrit 39.6 % (42.0-52.0); Hemoglobin 12.5 g/dl (14.0-18.0); Mean Corpuscular HGB Conc 31.6 g/dl (31.0-36.0); Mean Corpuscular Hemoglobin 26.5 pg (27.0-33.0); Mean Corpuscular Volume 83.9 fL (80.0-98.0); Mean Platelet Volume 11.4 fL (9.4-12.4); Platelet Count 236 X10*3/uL (160-400); Red Blood Count 4.72 X10*6/uL (4.60-5.80); Red Cell Distribution Width 14.4 % (11.0-16.0); White Blood Count 7.1 X10*3/uL (4.8-10.8)
[2023-04-07 16:59] LABS: Alanine Aminotransferase 29 U/L (0-40); Albumin Level 4.3 g/dL (3.5-5.0); Alkaline Phosphatase 104 U/L (39-117); Anion Gap 12 (12-20); Aspartate Amino Transferase 21 U/L (5-37); Bilirubin Direct 0.2 mg/dL (0.0-0.5); Bilirubin Total 0.6 mg/dL (0.0-1.0); Blood Urea Nitrogen 12 mg/dL (9-16); Calcium 9.3 mg/dL (8.4-10.2); Carbon Dioxide 29 mmol/L (22-29); Chloride 104 mmol/L (96-108); Cholesterol 121 mg/dL (<200); Estimated Glomerular Filt Rate > 60; Glucose Random 124 mg/dL (60-115); HDL Cholesterol 35 mg/dL (>40); LDL Cholesterol Calculated 60 mg/dL (<100); Potassium 4.2 mmol/L (3.3-5.1); Sodium 141 mmol/L (135-145); Total Protein 7.2 g/dL (6.5-8.0); Triglycerides 131 mg/dL (<150)
[2023-04-07 17:19] LABS: Thyroid Stimulating Hormone 2.16 uIU/mL (0.32-4.0)
== END 2023-04-07 15:19 | disposition home or self-care (01) ==
LOC: HO.LAB 15:18
PROVIDERS: PCP Internal Medicine; Visit Provider Internal Medicine
DX: E03.9 Hypothyroidism, unspecified (principal); E78.5 Hyperlipidemia, unspecified; G20.C Parkinsonism, unspecified
CPT/HCPCS: 36415; 80048; 80061; 80076; 84443; 85027

== ENCOUNTER 2023-08-10 13:51 | Outpatient (AMB) | payer MEDICARE, SELFPAY ==
--- NOTE | 2023-08-10 14:11 | MHC.PC.OV ---
Vital Signs 08/10/23 14:14 Height 5 ft 8 in Weight 162 lb 6 oz BMI 24.7 BP 120/60 Blood Pressure Location Lt brachial Position Sitting Pulse 62 Pulse Source Pulse Oximeter Pulse Oximetry (%) 95 Oxygen Delivery Method Room Air Intake Visit Reasons: 4mth f/u Intake Note: Patient is here to follow up on DM, Hyperlipidemia, Hypothyroid, Parkinson. Requesting for a referral for podiatry. Flight Security Specialist Required: Yes Flight Security Specialist Language: Civil Service Clerk Name: Ute (daughter) Information Interpreted: non-clinical & clinical Food Service Worker: Present Accompanied by: Daughter Allergies No Known Allergies Allergy (Verified 08/11/23 09:44) Medication List - Last Reconciled 08/11/23 by Basilio Martin MD albuterol sulfate 90 mcg/actuation 1 inh inhalation QID PRN aspirin 81 mg PO DAILY atorvastatin 40 mg PO DAILY carbidopa-levodopa 25-100 mg 1 tab PO QID commode As directed donepezil 10 mg PO DAILY levothyroxine (Synthroid) 25 mcg PO DAILY memantine 10 mg PO BID metformin 500 mg PO BID paroxetine HCl 20 mg PO DAILY pioglitazone 15 mg PO DAILY timolol maleate 0.5% 1 drp ophthalmic (eye) QAM [URINAL As directed] [Wheel chair Wheel chair - As directed] Tobacco use date assessed: 08/10/23 Fall risk assessment: No Falls in past year Last assessed Fall Risk: 08/10/23 Dental Screening Dental Screen Date: 08/10/23 Did you have a dental visit in the last 12 months?: No Did you have a dental problem in the last 6 months where you did not have access to dental care?: No Was dental information given to patient?: No HPI 4mth f/u HPI Details 82-year-old male presents to the office to discuss his medical condition. He is accompanied by his daughter. She is speaking on his behalf. Patient reports that his Parkinson symptoms have worsened. He has not having the mobility that he had in the past. She has an appointment with the neurologist. His sleep patterns are okay. Eating well. No urinary incontinence. Patient is a diabetic and part of the foot maintenance she would like him to see a pre press operator. Compliant with medications and checking sugars regularly. [facility] Medical History Alzheimer disease Diabetes Stroke Parkinsons Surgical History No pertinent past surgical history Family History Father No problems noted. Mother No problems noted. Family/Other Diabetes Son In good health Son In good health Son No problems noted. Daughter In good health Daughter In good health Social History Housing: Assisted Living Facility Alcohol intake: never Patient Tobacco Use Status: Current everyday Tobacco user Tobacco use type: Cigarette Cigarette Packs Per Day: 1 Cigarettes Per Day: 15 e-Cigarette/Vaping Use: Never Used Second Hand Smoke Exposure: Yes service: Yes Current occupational status: retired Current occupation: rt handed Cognitive needs: Yes (wheelchair/walker) Hearing needs: No Vision needs: No Questionnaire PHQ-9 Over the last 2 weeks, how often have you been bothered by any of the following problems? 1. Little interest or pleasure in doing things: not at all 2. Feeling down, depressed, or hopeless: not at all 3. Trouble falling or staying asleep, or sleeping too much: not at all 4. Feeling tired or having little energy: not at all 5. Poor appetite or overeating: not at all 6. Feeling bad about yourself - or that you are a failure or have let yourself or your family down: not at all 7. Trouble concentrating on things, such as reading the newspaper or watching television: not at all 8. Moving or speaking so slowly that other people could have noticed. Or the opposite - being so fidgety or restless that you have been moving around a lot more than usual: not at all 9. Thoughts that you would be better off or of hurting yourself in some way: not at all Total score: 0 Depression Screening Interpretation: Negative Depression Screening Done: Yes Source: Developed by Drs. Mohsen Waterman, Caitlin Plunkett, Hema Miller and colleagues, with an educational sydney from [employer]. Thrive Questionnaire Date Thrive assessed: 08/10/23 I am a: Patient What is your living situation today?: I have a steady place to live Within the past 12 months, did the food you bought not last and you didn't have the money to get more?: Never true Within the past 12 months, did you worry whether your food would run out before you got money to buy more?: Never true Do you have trouble paying for medicines?: No Do you have trouble getting transportation to medical appointments?: No Do you have trouble paying your heating and electricity bill?: No Do you have trouble taking care of your child, family member or friend?: No Do you have trouble with day-to-day activities such as bathing, preparing meals, shopping, managing finances, etc.?: No Are you currently unemployed and looking for a job?: No Are you interested in more education?: No Currently or been in a relationship where the following occur: no concerns reported THRIVE Score: 0 AUDIT C Alcohol Use Questionnaire (AUDIT-C) 1. How often do you have a drink containing alcohol?: Never Total Score: 0 EVERETTE-7 AMB Questionnaire EVERETTE-7 Date EVERETTE - 7 assessed: 08/10/23 Feeling nervous, anxious, or on edge: 0 = Not at all Not being able to stop or control worryin = Not at all Worrying too much about different things: 0 = Not at all Trouble relaxin = Not at all Being so restless that it is hard to sit still: 0 = Not at all Becoming easily annoyed or irritable: 0 = Not at all Feeling afraid as if something awful might happen: 0 = Not at all Total EVERETTE-7 score (0-4 normal; 5-9 mild; 10-14 moderate; 15-21 severe): 0 Source: Developed by Drs. Mohsen Waterman, Caitlin Plunkett, Hema Miller and colleagues, with an educational sydney from [employer]. Physical exam (Primary Care) Vital Signs: Last Vital Signs Pulse 62 08/10/23 14:14 BP 120/60 08/10/23 14:14 Pulse Ox 95 08/10/23 14:14 Oxygen Delivery Method Room Air 08/10/23 14:14 BMI result Body Mass Index 24.7 Tobacco/Smoking Status: Tobacco use Status Tobacco use date assessed 03/07/24 03/07/24 14:19 Patient Tobacco Use Status Current everyday Tobacco 08/10/23 14:22 Tobacco use type Cigarette 08/10/23 14:22 e-Cigarette/Vaping Use Never Used 08/10/23 14:22 PHQ-9: PHQ-9 Score PHQ-9: Total score 0 08/10/23 14:19 Depression Screening Interpretation: Negative Thrive Assessment: Date of Thrive Assessment Date Thrive assessed 08/10/23 08/10/23 14:19 Currently or been in a relationship where the following occur: no concerns reported Const General: cooperative and healthy appearing Nutritional Appearance: well nourished Orientation/consciousness: patient oriented x3 Limitations: no limitations HENMT Head: Yes normal to inspection Eyes General: appearance normal, both eyes and all related structures Neck Neck: Yes normal visual inspection Chest Chest palpation & inspection: normal palpation of entire chest wall Resp Effort & Inspection: normal respiratory effort Neuro General: patient oriented x3 Results AMB Hemoglobin A1c AMB Hemoglobin A1c 7.0 % Last Edit by JAMIE Rosario on 08/10/23 14:26 Results Reviewed Results Reviewed: Laboratory Last Values Hgb A1c (Clinic) 7.0 % (4.0-6.0) H 08/10/23 14:11 Assessment and Plan Assessment & Plan (1) Diabetes: Code(s): E11.9 - Type 2 diabetes mellitus without complications Plan: Current A1c is 7.0. Patient was advised to continue taking the combination of metformin and pioglitazone. (2) Stroke: Code(s): I63.9 - Cerebral infarction, unspecified Plan: Condition is stable. (3) Parkinsons: Code(s): G20 - Parkinson's disease Plan: Patient has a scheduled appointment with his neurologist. The carbidopa dosage can be increased. Orders: Orders AMB Hemoglobin A1c 08/10/23 E11.9 - Type 2 diabetes mellitus without complications Referrals Podiatry Referral E11.9 - Type 2 diabetes mellitus without complications Coding Level of Care Code Est Pt Level 4 (14191) Diagnoses Diabetes E11.9 Stroke I63.9 Parkinsons G20
[2023-08-10 14:14] VITALS: BP 120/60; PULSE 62; O2SAT 95; BMI 24.7
== END 2023-08-10 14:58 | disposition home or self-care (01) ==
PROVIDERS: PCP Internal Medicine; Visit Provider Internal Medicine
DX: E11.9 Type 2 diabetes mellitus without complications (principal)
CPT/HCPCS: 83036; 99214

== ENCOUNTER 2023-11-30 14:28 | Outpatient (AMB) | payer MEDICARE, SELFPAY ==
--- NOTE | 2023-11-30 14:32 | MHC.PC.OV ---
Vital Signs 11/30/23 14:33 Height 5 ft 8 in BMI Reason not done Patient refused/unable BP 130/60 Blood Pressure Location Rt brachial Position Sitting Pulse 68 Pulse Source Pulse Oximeter Pulse Oximetry (%) 96 Oxygen Delivery Method Room Air Intake Visit Reasons: 3mth f/u Intake Note: Patient is here to follow up on DM, HLD,Parkinson disease, Hypothyroidism. Complaint of hearing loss and requesting for medication to help sleep at night time. Director Of Dementia Operations Required: Yes Director Of Dementia Operations Language: Health And Safety Instructor Name: Ute(daughter) Information Interpreted: non-clinical & clinical Elevator Constructor Helper: Present Accompanied by: Daughter Allergies No Known Allergies Allergy (Verified 11/30/23 17:51) Medication List - Last Reconciled 11/30/23 by Basilio Martin MD albuterol sulfate 90 mcg/actuation 1 inh inhalation QID PRN aspirin 81 mg PO DAILY atorvastatin 40 mg PO DAILY carbidopa-levodopa 25-100 mg 1 tab PO QID commode As directed donepezil 10 mg PO DAILY levothyroxine (Synthroid) 25 mcg PO DAILY memantine 10 mg PO BID metformin 500 mg PO BID paroxetine HCl 20 mg PO DAILY pioglitazone 15 mg PO DAILY timolol maleate 0.5% 1 drp ophthalmic (eye) QAM trazodone 100 mg PO BEDTIME PRN 90 days [URINAL As directed] [Wheel chair Wheel chair - As directed] Tobacco use date assessed: 11/30/23 Fall risk assessment: 2 + Falls in past year Last assessed Fall Risk: 11/30/23 Dental Screening Dental Screen Date: 08/10/23 HPI 3mth f/u HPI Details 83-year-old male presents to the office to discuss his medical condition. He does not speak. His daughters speaking on his behalf. His Parkinson symptoms tremors are worsening since last office visit. He has increased restlessness in his feet. Has difficulty walking at home with his shuffling gait. The neurologist increased the carbidopa dosage but the daughter feels it has not enough. She is requesting that I speak to the neurologist about her concern. Patient is also reporting symptoms of diminished hearing. [facility] Medical History Alzheimer disease Diabetes Stroke Parkinsons Surgical History No pertinent past surgical history Family History Father No problems noted. Mother No problems noted. Family/Other Diabetes Son In good health Son In good health Son No problems noted. Daughter In good health Daughter In good health Social History (Updated 11/30/23 @ 14:53 by JAMIE Rosario) Housing: Assisted Living Facility Alcohol intake: never Patient Tobacco Use Status: Current everyday Tobacco user Tobacco use type: Cigarette Cigarette Packs Per Day: 1.5 Cigarettes Per Day: 30 e-Cigarette/Vaping Use: Never Used Second Hand Smoke Exposure: Yes service: Yes Current occupational status: retired Current occupation: rt handed Cognitive needs: Yes (wheelchair/walker) Hearing needs: No Vision needs: No Questionnaire Thrive Questionnaire Date Thrive assessed: 08/10/23 EVERETTE-7 AMB Questionnaire EVERETTE-7 Date EVERETTE - 7 assessed: 08/10/23 Source: Developed by Drs. Mohsen Waterman, Caitlin Plunkett, Hema Miller and colleagues, with an educational sydney from [employer]. Physical exam (Primary Care) Vital Signs: Last Vital Signs Pulse 68 11/30/23 14:33 BP 130/60 11/30/23 14:33 Pulse Ox 96 11/30/23 14:33 Oxygen Delivery Method Room Air 11/30/23 14:33 Tobacco/Smoking Status: Tobacco use Status Tobacco use date assessed 11/30/23 11/30/23 14:56 Patient Tobacco Use Status Current everyday Tobacco 11/30/23 14:56 Tobacco use type Cigarette 11/30/23 14:56 e-Cigarette/Vaping Use Never Used 11/30/23 14:56 Thrive Assessment: Date of Thrive Assessment Date Thrive assessed 08/10/23 11/30/23 14:56 Const General: cooperative and healthy appearing Nutritional Appearance: well nourished Orientation/consciousness: patient oriented x3 Limitations: no limitations HENMT Head: Yes normal to inspection Eyes General: appearance normal, both eyes and all related structures Neck Neck: Yes normal visual inspection Chest Chest palpation & inspection: normal palpation of entire chest wall Resp Effort & Inspection: normal respiratory effort Neuro General: patient oriented x3 Results AMB Hemoglobin A1c AMB Hemoglobin A1c 7.1 % Last Edit by JAMIE Rosaroi on 11/30/23 14:57 Results Reviewed Results Reviewed: Laboratory Last Values Hgb A1c (Clinic) 7.1 % (4.0-6.0) H 11/30/23 14:31 Assessment and Plan Assessment & Plan (1) Parkinsons: Code(s): G20 - Parkinson's disease Plan: Will speak to the neurologist about other options for his motor disease. Patient was instructed to proceed to the walk-in to have his ears cleaned. Orders: Orders AMB Hemoglobin A1c Today E11.9 - Type 2 diabetes mellitus without complications Medications: New trazodone 100 mg PO BEDTIME PRN 90 tabs 1RF sleep 90 days Coding Level of Care Code Est Pt Level 3 (68491) Complex EM visit Add On G2211 Diagnoses Parkinsons G20
[2023-11-30 14:33] VITALS: BP 130/60; PULSE 68; O2SAT 96
== END 2023-11-30 15:39 | disposition home or self-care (01) ==
PROVIDERS: PCP Internal Medicine; Visit Provider Internal Medicine
DX: E11.9 Type 2 diabetes mellitus without complications (principal); G20.C Parkinsonism, unspecified
CPT/HCPCS: 83036; 99213; G2211

== ENCOUNTER 2024-01-03 19:06 | Outpatient (REF) | payer MEDICARE, SELFPAY ==
--- NOTE | ~2024-01-03 | MR_ITS ---
EXAMINATION: MR BRAIN WITHOUT CONTRAST CLINICAL INFORMATION: Normal pressure hydrocephalus. COMPARISON: CT head from 06/07/2021. TECHNIQUE: MRI of the brain was obtained using routine sequences without contrast. FINDINGS: No focal restricted diffusion is demonstrated to suggest acute or subacute cerebral ischemia. No evidence of acute or chronic hemorrhagic products on heme-sensitive imaging. Chronic lacunar infarcts of the bilateral olivares radiata/lentiform nuclei/external capsules. Scattered and partially confluent periventricular, deep white matter, and brainstem T2 FLAIR hyperintensities consistent with moderate underlying microangiopathy. There is a degree of generalized cerebral volume loss with prominence of both the ventricles and sulcal spaces. However, there appears to be mildly disproportionate prominence of the ventricles. The posterior callosal angle is decreased (61 degrees) when measured on a corrected coronal image, orthogonal to the anterior commissure-posterior commissure line. The third ventricle measures up to 1.8 cm in diameter (previously 1.5 cm in 2021). No abnormal mass effect. No midline shift. Normal appearance of the pituitary gland. Normal positioning of the cerebellar tonsils. Normal arterial and venous vascular flow voids are present. Normal, homogeneous marrow signal. Mild mucosal thickening of the paranasal sinuses. No signal abnormalities within the mastoids. Bilateral lens extractions. MR/MR head/brain wo con IMPRESSION: 1. No acute intracranial abnormalities. 2. 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 3. There is a degree of generalized cerebral volume loss with prominence of both the ventricles and sulcal spaces. However, there appears to be mildly disproportionate prominence of the ventricles. This may be due to disproportionate central volume loss; however, correlation with symptoms of potential superimposed normal pressure hydrocephalus is recommended. Electronically signed by: Cyrus Vigil DO 02/01/2024 06:35 AM EDT
== END 2024-01-03 19:07 | disposition home or self-care (01) ==
LOC: HO.MRI 19:06
PROVIDERS: PCP Internal Medicine; Visit Provider Psychiatry & Neurology Neurology
DX: G91.2 (Idiopathic) normal pressure hydrocephalus (principal)
CPT/HCPCS: 70551

== ENCOUNTER → 2024-03-27 14:52 | Outpatient (AMB) | payer OTHER, SELFPAY ==
--- NOTE | 2024-03-27 14:52 | A.OFFPC_ITS ---
Intake Visit Reasons: 3mth f/u Intake Note: Patient is here to follow up on HLD, Hypothyroid, DM, Parkinson Physical Aerodynamicist Required: No Costume Shop Manager: Present Accompanied by: Daughter Allergies No Known Allergies Allergy (Verified 03/27/24 14:53) Tobacco use date assessed: 11/30/23 Fall risk assessment: No Falls in past year Last assessed Fall Risk: 03/27/24 Dental Screening Dental Screen Date: 08/10/23 HPI HPI Comments History of Present Illness Details A tele visit was scheduled to discuss the health of the 83-year-old male. His daughter spoke on patient's behalf. After the visit to the neurologist, a scan confirmed normal pressure hydrocephalus. Patient has declined therapeutic lumbar puncture. He declines to undergo any treatment in this regard. His mental health has been declining. Patient has been lethargic and depressed. Mobility has decreased and is unable to walk more than a few steps. It does have good and bad days. The good days are when he is alert and able to eat. Urinary incontinence present. [facility] Medical History (Updated 03/28/24 @ 04:31 by Basilio Martin MD) Normal pressure hydrocephalus Alzheimer disease Diabetes Stroke Parkinsons Surgical History No pertinent past surgical history Family History Father No problems noted. Mother No problems noted. Family/Other Diabetes Son In good health Son In good health Son No problems noted. Daughter In good health Daughter In good health Social History (Updated 11/30/23 @ 14:53 by JAMIE Rosario) Housing: Assisted Living Facility Alcohol intake: never Patient Tobacco Use Status: Current everyday Tobacco user Tobacco use type: Cigarette Cigarette Packs Per Day: 1.5 Cigarettes Per Day: 30 e-Cigarette/Vaping Use: Never Used Second Hand Smoke Exposure: Yes service: Yes Current occupational status: retired Current occupation: rt handed Cognitive needs: Yes (wheelchair/walker) Hearing needs: No Vision needs: No Questionnaire Thrive Questionnaire Date Thrive assessed: 08/10/23 EVERETTE-7 AMB Questionnaire EVERETTE-7 Date EVERETTE - 7 assessed: 08/10/23 Source: Developed by Drs. Mohsen L. GuevaraCaitlin ramirez Kurt Kroenke and colleagues, with an educational sydney from [employer]. Review of Systems Eyes Reports no additional complaints ENT Denies dizziness Card Denies no additional complaints, Denies lightheadedness and Denies orthopnea Neuro Denies dizziness Physical exam (Primary Care) Tobacco/Smoking Status: Tobacco use Status Tobacco use date assessed 11/30/23 03/27/24 14:55 Patient Tobacco Use Status Current everyday Tobacco 03/27/24 14:55 Tobacco use type Cigarette 03/27/24 14:55 e-Cigarette/Vaping Use Never Used 03/27/24 14:55 Thrive Assessment: Date of Thrive Assessment Date Thrive assessed 08/10/23 03/27/24 14:55 Telehealth Telehealth Telehealth Platform: [employer] Location of provider rendering services: practice address Location of patient: address on file Patient Identification confirmed using: Name, : Yes Telehealth method: voice only Patient verbally consented to treatment: Yes Patient verbally consented to billing insurance company: Yes Patient informed of any privacy concerns related to visit: Yes Minutes spent on Phone/Video with Pt.: 15 Coding Level of Care Code Tele Est Pt Level 4 (84196) Complex EM visit Add On G2211 Diagnoses Normal pressure hydrocephalus G91.2 Alzheimer disease G30.9; F02.80 Assessment & Plan Assessment & Plan (1) Normal pressure hydrocephalus: Code(s): G91.2 - (Idiopathic) normal pressure hydrocephalus Category: Medical Plan: Scan reviewed with the daughter. Patient still has a neurology appointment in the coming week. I encouraged the daughter to keep the appointment. (2) Alzheimer disease: Code(s): G30.9 - Alzheimer's disease, unspecified; F02.80 - Dementia in other diseases classified elsewhere, unspecified severity, without behavioral disturbance, psychotic disturbance, mood disturbance, and anxiety Category: Medical Plan: Condition is progressive.
== END ==
LOC: HO.HMCH 14:52
PROVIDERS: PCP Internal Medicine; Visit Provider Internal Medicine
DX: G91.2 (Idiopathic) normal pressure hydrocephalus (principal); G30.9 Alzheimer's disease, unspecified; F02.80 Dementia in other diseases classified elsewhere, unspecified severity, without behavioral disturbance, psychotic disturbance, mood disturbance, and anxiety

== ENCOUNTER → 2024-03-27 14:52 | Outpatient (BNVA) | payer OTHER, SELFPAY | PROVIDERS: PCP Internal Medicine; Visit Provider Internal Medicine ==

== ENCOUNTER 2025-03-26 15:05 | Outpatient (REF) | payer OTHER, SELFPAY ==
[2025-03-26 17:29] LABS: Hematocrit 41.5 % (42.0-52.0); Hemoglobin 12.9 g/dl (14.0-18.0); Mean Corpuscular HGB Conc 31.1 g/dl (31.0-36.0); Mean Corpuscular Hemoglobin 26.2 pg (27.0-33.0); Mean Corpuscular Volume 84.3 fL (80.0-98.0); NRBC Abs Auto 0.000 X10*3/uL (0.0-0.012); NRBC Pct Auto 0.0 /100WBC (0.0-0.2); Platelet Count 219 X10*3/uL (160-400); Red Blood Count 4.92 X10*6/uL (4.60-5.80); White Blood Count 6.7 X10*3/uL (4.8-10.8)
[2025-03-26 19:19] LABS: Alanine Aminotransferase 26 U/L (0-40); Albumin Level 4.7 g/dL (3.5-5.0); Alkaline Phosphatase 103 U/L (39-117); Anion Gap 12 (12-20); Aspartate Amino Transferase 39 U/L (5-37); Blood Urea Nitrogen 15 mg/dL (9-16); Calcium 9.6 mg/dL (8.4-10.2); Carbon Dioxide 29 mmol/L (22-29); Chloride 105 mmol/L (96-108); Cholesterol 159 mg/dL (<200); Estimated Glomerular Filt Rate > 60; HDL Cholesterol 40 mg/dL (>40); Potassium 4.4 mmol/L (3.3-5.1); Sodium 142 mmol/L (135-145); Total Protein 7.5 g/dL (6.5-8.0); Triglycerides 165 mg/dL (<150)
[2025-03-26 19:38] LABS: Thyroid Stimulating Hormone 3.58 uIU/mL (0.32-4.0)
--- OUTSIDE RECORDS SUMMARY | 2025-03-26 22:05 | XMS_ITS | Patient Health Record ---
Author Organization [facility] Address [address] [place] [address] Care Team Providers Care Blowing Weasand Name Role Phone MarioBasilio Primary Care Provider Donnie Tamayo Unavailable [phone] Allergies No Known Allergies Reason For Referral No Information Medications Medication SIG (Take, Route, Frequency, Duration) Notes Start Date End Date Status Pioglitazone HCl 15 MG 1 tablet Orally O nce a day; Duration: 30 day(s) Active Ammonium Lactate 12 % 1 application to a ffected area Externally to feet Twice a day; Duration: 30 days Active Levothyroxine Sodium Active Aspirin 81 MG 1 tablet Orally Once a day; Duration: 30 day(s) Active Extra Depth Orthopedic Shoes (1 Pair) with Customized Heat Molded Multidensity Innersoles (3 Pair) as directed Dx: NIDDM/PVD (E11.59), Hammertoe Foot Deformity (M20.41,M20.42), Preulcerative Skin Lesion(s) (L85.1) Active Fish Oil Active lipitor 1 tab Oral; Duration : 14 days Active Multivitamin - 1 tablet Orally Once a day; Duration: 30 day(s) Active metFORMIN HCl 500 MG 1 tablet with a yaron l Orally Once a day; Duration: 30 day(s) Active Namenda 10 MG 1 tablet Orally Twic e a day; Duration: 30 day(s) Active PARoxetine HCl 20 MG 1 tablet in the mor akash Orally Once a day; Duration: 30 day(s) Active Social History Tobacco Use: Social History Observation Description Date Details (start date - stop date) Current Smoker NA - NA Tobacco Use/Smoking Question Answer Notes Are you a: current smoker How many cigarettes a day do you smoke? Alcohol Screen Question Answer Notes Did you have a drink containing alcohol in the p ast year? No Points 0 Interpretation Negative Tobacco use other than smoking: Question Answer Notes Are you an other tobacco user? No Problems Problem Type SNOMED Code ICD Code Onset Dates Problem Status W/U Status Risk Notes Problem Acquired hammer toe of right foot (20911195222790 05) Other hammer toe(s) (acquired), right foot (M20.41) Active confirmed Problem Type 2 diabetes mellitus with peripheral angiopathy (253185549) Type 2 diabetes mellitus with diabetic peripheral angiopathy without gangrene (E11.51) Active confirmed Problem Acquired hammer toe of left foot (81528586911171 03) Other hammer toe(s) (acquired), left foot (M20.42) Active confirmed Plan Of Treatment Pending Test Test Name Order Date [id number] NAIL, 6 OR MORE 04/02/2020 [id number] NAIL, 6 OR MORE 07/08/2020 [id number] NAIL, 6 OR MORE 12/21/2020 [id number] NAIL, 6 OR MORE 09/23/2021 [id number] SKIN LESIONS, OVER 4 09/24/19 22 [id number] SKIN LESIONS, OVER 4 12/22/19 [id number] SKIN LESIONS, OVER 4 07/08/19 21 [id number] SKIN LESIONS, OVER 4 04/02/20 20 Insurance Providers Payer Name Payer Address Payer Phone Subscriber Number Group Number Insured Name Patient Relationship to Insured Coverage Start Date Coverage End Date [facility] SCO Claims [address] [place] [address] [id number] Benton Dhaliwal Self - patient is the insured Medical (General) History Medical History History ICD Code Alzheimers disease Dementia Diabetic Glaucoma Parkinsons disease Stroke CAD Surgical History Surgery Date(Month/Year) Hospitalization History Reason Date(Month/Year) [facility]- cast removal 05/2020
== END 2025-03-26 15:06 | disposition home or self-care (01) ==
LOC: HO.LAB 15:05
PROVIDERS: PCP Internal Medicine; Visit Provider Internal Medicine
DX: E11.9 Type 2 diabetes mellitus without complications (principal); I63.9 Cerebral infarction, unspecified; G20.C Parkinsonism, unspecified
CPT/HCPCS: 36415; 80048; 80061; 80076; 83036; 84443; 85027; 99212

== ENCOUNTER 2025-03-26 15:05 | Outpatient (AMB) | payer OTHER, SELFPAY ==
--- NOTE | 2025-03-26 15:15 | MHC.PC.OV ---
Vital Signs 03/26/25 15:21 Height 5 ft 8 in Weight 156 lb 15.506 oz BMI 23.9 BP 90/60 Blood Pressure Location Lt brachial Position Sitting Pulse 69 Pulse Source Pulse Oximeter Temp 97.1 F Temp Source Temporal Artery Scan Pulse Oximetry (%) 96 Oxygen Delivery Method Room Air Intake Visit Reasons: follow up-patient will need wheelchair for visit* Intake Note: Patient is here to follow up on DM. Digital Marketing Program Manager Required: Yes Digital Marketing Program Manager Language: Supervisor Cell Maintenance Name: Ute (daughter) Information Interpreted: non-clinical & clinical (pt decline news librarian service prefer daughter to translate) Fish Egg Packer: Present Accompanied by: Daughter Allergies No Known Allergies Allergy (Verified 03/26/25 15:20) Tobacco use date assessed: 03/26/25 Fall risk assessment: 2 + Falls in past year Last assessed Fall Risk: 03/26/25 Dental Screening Dental Screen Date: 03/26/25 Did you have a dental visit in the last 12 months?: No Did you have a dental problem in the last 6 months where you did not have access to dental care?: No Was dental information given to patient?: No [facility] Medical History (Updated 03/28/24 @ 04:31 by Basilio Martin MD) Normal pressure hydrocephalus Alzheimer disease Diabetes Stroke Parkinsons Surgical History No pertinent past surgical history Family History Father No problems noted. Mother No problems noted. Family/Other Diabetes Son In good health Son In good health Son No problems noted. Daughter In good health Daughter In good health Social History (Updated 03/26/25 @ 15:31 by JAMIE Rosario) Housing: Assisted Living Facility Alcohol intake: never Patient Tobacco Use Status: Current everyday Tobacco user Tobacco use type: Cigarette Cigarette Packs Per Day: 0.5 Cigarettes Per Day: 10 e-Cigarette/Vaping Use: Never Used Second Hand Smoke Exposure: Yes service: Yes Current occupational status: retired Current occupation: rt handed Cognitive needs: Yes (wheelchair/walker) Hearing needs: No Vision needs: No Questionnaire PHQ-9 Over the last 2 weeks, how often have you been bothered by any of the following problems? 1. Little interest or pleasure in doing things: not at all 2. Feeling down, depressed, or hopeless: not at all 3. Trouble falling or staying asleep, or sleeping too much: not at all 4. Feeling tired or having little energy: not at all 5. Poor appetite or overeating: not at all 6. Feeling bad about yourself - or that you are a failure or have let yourself or your family down: not at all 7. Trouble concentrating on things, such as reading the newspaper or watching television: not at all 8. Moving or speaking so slowly that other people could have noticed. Or the opposite - being so fidgety or restless that you have been moving around a lot more than usual: not at all 9. Thoughts that you would be better off or of hurting yourself in some way: not at all Total score: 0 Depression Screening Interpretation: Negative Depression Screening Done: Yes Source: Developed by Drs. Mohsen Waterman, Caitlin Plunkett, Hema Miller and colleagues, with an educational sydney from [employer]. Thrive Questionnaire Date Thrive assessed: 03/26/25 I am a: Patient What is your living situation today?: I have a steady place to live Within the past 12 months, did the food you bought not last and you didn't have the money to get more?: Never true Within the past 12 months, did you worry whether your food would run out before you got money to buy more?: Never true Do you have trouble paying for medicines?: No Do you have trouble getting transportation to medical appointments?: No Do you have trouble paying your heating and electricity bill?: No Do you have trouble taking care of your child, family member or friend?: No Do you have trouble with day-to-day activities such as bathing, preparing meals, shopping, managing finances, etc.?: No Are you currently unemployed and looking for a job?: No Are you interested in more education?: No Please select the resources that you would like help with: None Currently or been in a relationship where the following occur: No concerns reported THRIVE Score: 0 AUDIT C Alcohol Use Questionnaire (AUDIT-C) 1. How often do you have a drink containing alcohol?: Never Total Score: 0 EVERETTE-7 AMB Questionnaire EVERETTE-7 Date EVERETTE - 7 assessed: 03/26/25 Feeling nervous, anxious, or on edge: 0 = Not at all Not being able to stop or control worryin = Not at all Worrying too much about different things: 0 = Not at all Trouble relaxin = Not at all Being so restless that it is hard to sit still: 0 = Not at all Becoming easily annoyed or irritable: 0 = Not at all Feeling afraid as if something awful might happen: 0 = Not at all Total EVERETTE-7 score (0-4 normal; 5-9 mild; 10-14 moderate; 15-21 severe): 0 Source: Developed by Drs. Mohsen Waterman, Caitlin Plunkett, Hema Miller and colleagues, with an educational sydney from [employer]. Physical exam (Primary Care) Vital Signs: Last Vital Signs Temp 97.1 F 03/26/25 15:21 Pulse 69 03/26/25 15:21 BP 90/60 03/26/25 15:21 Pulse Ox 96 03/26/25 15:21 Oxygen Delivery Method Room Air 03/26/25 15:21 BMI result Body Mass Index 23.9 Tobacco/Smoking Status: Tobacco use Status Tobacco use date assessed 03/26/25 03/26/25 15:21 Patient Tobacco Use Status Current everyday Tobacco 03/26/25 15:32 Tobacco use type Cigarette 03/26/25 15:31 e-Cigarette/Vaping Use Never Used 03/26/25 15:31 PHQ-9: PHQ-9 Score PHQ-9: Total score 0 03/26/25 15:21 Depression Screening Interpretation: Negative Thrive Assessment: Date of Thrive Assessment Date Thrive assessed 03/26/25 03/26/25 15:21 Currently or been in a relationship where the following occur: No concerns reported Results AMB Hemoglobin A1c AMB Hemoglobin A1c 6.8 % Last Edit by JAMIE Rosario on 03/26/25 15:39 Results Reviewed Results Reviewed: Laboratory Last Values Hgb A1c (Clinic) 6.8 % (4.0-6.0) H 03/26/25 15:22 Coding Level of Care Code Est Pt Level 4 (71738) Complex EM visit Add On G2211 Diagnoses Parkinsons G20 Assessment & Plan Assessment & Plan (1) Parkinsons: Code(s): G20 - Parkinson's disease Category: Medical Plan: History of Present Illness - The patient is an 84-year-old male presenting with hearing loss, peripheral vision loss, and decreased mobility. - Hearing loss: The patient has significant hearing loss, particularly in the right ear, affecting communication and daily activities. - This may be linked to a previous ear injury from a fall. - Peripheral vision loss: The patient has lost peripheral vision in the right eye and is under ophthalmological care. - Decreased mobility: The patient requires assistance with feeding and dressing due to decreased mobility. - Incontinence: The patient is experiencing incontinence, with a urine test ordered for further evaluation. - Parkinson's disease: The patient is on Carbidopa-Levodopa and has regular neurologist consultations. - Preventative care: The patient has received the influenza vaccine and is scheduled for a COVID-19 vaccine. Social History - Living situation: The patient lives close to family, approximately five minutes away, and receives assistance with daily activities. - Functional status: The patient requires assistance with feeding and dressing due to decreased mobility and occasional shakiness. Review of Systems - Auditory: Reports hearing loss, particularly in the right ear. - Ophthalmologic: Reports peripheral vision loss in the right eye. - Neurological: Reports decreased mobility and occasional confusion. - Genitourinary: Reports incontinence. Physical Exam General: Cooperative and healthy appearing Nutritional Appearance: Well nourished Orientation/consciousness: Patient oriented x3 Limitations: No limitations Head: Normal to inspection General: Appearance normal, both eyes and all related structures Neck: Normal visual inspection Chest: Normal palpation of entire chest wall Respiratory: N ormal respiratory effort Neurology: Patient oriented x3, decreased mobility, assistance needed with clothing, some confusion, taking Parkinson's medications (Carbidopa-Levodopa) Results - Labs: Blood work ordered but not yet completed. - Urine test: Ordered to investigate incontinence. Plan - Arrange audiology referral for hearing assessment. - Continue ophthalmology follow-up for peripheral vision loss. - Conduct blood work as previously ordered. - Perform urine test to evaluate incontinence. - Maintain current Parkinson's disease management with Carbidopa-Levodopa and neurologist follow-ups. - Ensure completion of COVID-19 vaccination. Discussion Notes I discussed the need for audiology referral to assess the patient's hearing loss and emphasized the importance of continuing ophthalmology follow-up for peripheral vision loss. We reviewed the necessity of completing blood work and performing a urine test to evaluate incontinence. I advised maintaining the current Parkinson's disease management with Carbidopa-Levodopa and regular neurologist consultations. Additionally, I highlighted the importance of completing the COVID-19 vaccination. Patient Instructions - Schedule an appointment with an [facility] for hearing evaluation. - Continue attending ophthalmology appointments for vision care. - Complete the blood work as soon as possible. - Follow up with the urine test to check for any issues related to incontinence. - Keep taking Parkinson's medication as prescribed and attend neurologist appointments. - Ensure to get the COVID-19 vaccine if not already done. Orders: Orders AMB Hemoglobin A1c Today E11.9 - Type 2 diabetes mellitus without complications Referrals Audiology Referral H91.90 - Unspecified hearing loss, unspecified ear
[2025-03-26 15:21] VITALS: BP 90/60; PULSE 69; TEMP 36.2; O2SAT 96; BMI 23.9
--- OUTSIDE RECORDS SUMMARY | 2025-03-26 21:22 | XMS_ITS | Clinical Summary ---
Author Organization [address] [place] [address] Address [address] [place] [address] Phone Care Team Providers Care Pathology Tech Name Role Phone Basilio Martin MD Primary Care Provider [phone] Allergies No known active allergies Social History Tobacco Use Types Packs/Day Years Used Date Smoking Tobacco: Never Assessed Sex and Gender Information Value Date Recorded Sex Assigned at Not on file Legal Sex Male 8:29 AM EST Gender Identity Not on file Sexual Orientation Not on file Last Filed Vital Signs Vital Sign Reading Time Taken Comments Blood Pressure - - Pulse - - Temperature - - Respiratory Rate - - Oxygen Saturation - - Inhaled Oxygen Concentration - - Weight 73.5 kg (162 lb) 12/02/2024 3:02 PM EDT Height 172.7 cm (5' 7.99 ) 12/02/2024 3:02 PM ED T Body Mass Index 24.64 12/02/2024 3:02 PM EDT Plan of Treatment Health Maintenance Due Date Last Done Comments Zoster Vaccines (1 of 2) 1990 Pneumococcal Vaccine: 50+ Years (2 of 2 - PCV) 05/03/2012 05/03/2011 RSV Immunization Adult Patients (1 - 1-dose 75+ series) 10/18/2015 Cholesterol Screening (Lipid Panel) 03/14/2024 Falls Risk Assessment 03/14/2024 Medicare Annual Wellness Visit 03/14/2024 Social Influencers of Health Screening 03/14/2024 Depression Screening 06/05/2024 COVID-19 Vaccine ( season) 2025 10/19/2021, 04/19/2021, 09/01/2020, Additional history exists Influenza Vaccine (#1) 2025 , 03/06/2022, 02/21/2021, Additional history exists DTaP,Tdap,and Td Vaccines (2 - Td or Tdap) 09/20/2028 09/20/2018 HIB Vaccines Aged Out No longer eligi ble based on patient's age to complete this topic HPV Vaccines Aged Out No longer eligi ble based on patient's age to complete this topic Hepatitis A Vaccines Aged Out No long er eligible based on patient's age to complete this topic Hepatitis B Vaccines Aged Out No long er eligible based on patient's age to complete this topic IPV Vaccines Aged Out No longer eligi ble based on patient's age to complete this topic MMR Vaccines Aged Out No longer eligi ble based on patient's age to complete this topic Meningococcal ACWY Vaccine Aged Out N o longer eligible based on patient's age to complete this topic Meningococcal B Vaccine Aged Out No l onger eligible based on patient's age to complete this topic RSV Immunization Patients Under 20 months Aged Out No longer eligible based on patient's age to complete this topic Varicella Vaccines Aged Out No longer eligible based on patient's age to complete this topic Insurance [facility] MEDICARE Member Subscriber Plan / Payer (Ef fective 2018-Present) Name:Benton Dhaliwal Relation to Subscriber:Self Name:Benton Dhaliwal Payer ID:[id number] Group ID:[id number] Type:Not on file Address: [place] [address] [place] [address] Care Teams Pathology Tech Relationship Specialty Start Date End Date Basilio Martin MD [facility] [address] [place] [address] [address] [place] [address] PCP - General 08/14/23
== END 2025-03-26 16:12 | disposition home or self-care (01) ==
LOC: HO.HMCH 15:06
PROVIDERS: PCP Internal Medicine; Visit Provider Internal Medicine
DX: E11.9 Type 2 diabetes mellitus without complications (principal); G20.C Parkinsonism, unspecified

== ENCOUNTER 2025-03-28 17:07 | Outpatient (REF) | payer OTHER, SELFPAY ==
[2025-03-28 17:24] LABS: Appearance Urine Clear; Glucose Urine UA Negative (Negative); PH 6.0 (5.0-9.0); Specific Gravity - Urine 1.020 (1.005-1.025)
--- OUTSIDE RECORDS SUMMARY | 2025-03-28 17:24 | XMS_ITS | Clinical Summary ---
Author Organization [address] [place] [address] Address [address] [place] [address] Phone Care Team Providers Care Driver Supervisor Name Role Phone Basilio Martin MD Primary Care Provider [phone]- [phone] Allergies No known active allergies Social History [...] patient's age to complete this topic Insurance [facility] MEDIC[facility] Member Subscriber Plan / Payer (Ef fective 2018-Present) Name:Benton Dhaliwal Relation to Subscriber:Self Name:Benton Dhaliwal Payer ID:[id number] Group ID:[id number] Type:Not on file Address: [place] [address] [place] [address] Care Teams Driver Supervisor Relationship Specialty Start Date End Date Basilio Martin MD [facility] [address] [place] [address] [address] [place] [address] PCP - General 08/14/23
--- OUTSIDE RECORDS SUMMARY | 2025-03-28 17:24 | XMS_ITS | Patient Health Record ---
Author Organization [facility] Address [address] [place] [address] Care Team Providers Care Hospital Technician Name Role Phone MarioBasilio Primary Care Provider [phone] Donnie Tamayo Unavailable [phone] Allergies No Known Allergies Reason For Referral [...] Problem Acquired hammer toe of right foot (54330006955482 05) Other hammer toe(s) (acquired), right foot (M20.41) Active confirmed Problem Type 2 diabetes mellitus with peripheral angiopathy (136137822) Type 2 diabetes mellitus with diabetic peripheral angiopathy without gangrene (E11.51) Active confirmed Problem Acquired hammer toe of left foot (98253646336863 03) Other hammer toe(s) (acquired), left foot (M20.42) Active confirmed Plan Of Treatment Pending Test Test Name Order Date [id number] NAIL, 6 OR MORE 04/02/2020 [id number] NAIL, 6 OR MORE 07/08/2020 [id number] NAIL, 6 OR MORE 12/21/2020 [id number] NAIL, 6 OR MORE 09/23/2021 [id number] SKIN LESIONS, OVER 4 09/24/19 22 [id number] SKIN LESIONS, OVER 4 12/22/19 [id number] SKIN LESIONS, OVER 4 07/08/19 21 [id number] SKIN LESIONS, OVER 4 04/02/20 20 Insurance Providers Payer Name Payer Address Payer Phone Subscriber Number Group Number Insured Name Patient Relationship to Insured Coverage Start Date Coverage End Date [facility] SCO Claims [address] [place] [address] [id number] Benton Dhaliwal Self - patient is the insured Medical (General) History Medical History History ICD Code Alzheimers disease Dementia Diabetic Glaucoma Parkinsons disease Stroke CAD Surgical History Surgery Date(Month/Year) Hospitalization History Reason Date(Month/Year) [facility]- cast removal 05/2020
== END 2025-03-28 17:08 | disposition home or self-care (01) ==
LOC: HO.LNP 17:07
PROVIDERS: Visit Provider Internal Medicine
DX: E11.9 Type 2 diabetes mellitus without complications (principal); I63.9 Cerebral infarction, unspecified
CPT/HCPCS: 81003